=== PATIENT | female | born 1940 | race Caucasian/White ===

== ENCOUNTER 2017-12-18 14:58 | Inpatient (IN) | payer OTHER, MEDICARE ==
[~2017-12-18] VITALS: Ht 154.9 cm; Wt 70.3 kg
[2017-12-18 15:13] VITALS: BP 141/58; PULSE 93; RESP 16; TEMP 103; O2SAT 91
[2017-12-18 15:16] LABS: AUTOMATED NEUTROPHIL # 6.9 TH/MM3 (1.8-7.7); BASOPHIL % 0.2 % (0.0-2.0); HEMATOCRIT 37.5 % (35.0-46.0); HEMOGLOBIN 12.7 GM/DL (11.6-15.3); LYMPHOCYTE # 0.5 TH/MM3 (1.0-4.8); MEAN CELL VOLUME 90.6 FL (80.0-100.0); MEAN CORPUSCULAR HEMOGLOBIN 30.8 PG (27.0-34.0); MEAN PLATELET VOLUME 8.3 FL (7.0-11.0); MONO % 5.3 % (0.0-8.0); MONOCYTE # 0.4 TH/MM3 (0-0.9); NEUT % 87.5 % (16.0-70.0); PLATELET COUNT 116 TH/MM3 (150-450); RED BLOOD COUNT 4.14 MIL/MM3 (4.00-5.30); WHITE BLOOD COUNT 7.8 TH/MM3 (4.0-11.0)
--- NOTE | 2017-12-18 15:23 | PD ---
HPI Chief Complaint: Fever Time Seen by Provider: 15:07 Travel History International Travel<30 days: No Contact w/Intl Traveler<30days: No Traveled to known affect area: No History of Present Illness HPI The patient is a 77-year-old female who presents to the emergency department via EMS for generalized weakness. The patient states her symptoms started on Sunday with fever. The patient has had a fever at home as high as 105 for her r report. The patient does complain of arthralgias, generalized weakness, one episode of diarrhea this morning. The patient describes the diarrhea as loose, watery, brown, without any visible blood. She denies any history of C. difficile. She denies any sick contacts at home. She denies any headache, sore throat, cough, nausea, vomiting, or abdominal pain. She denies any associated dysuria. She does complain of generalized weakness. Symptoms are moderate. [facility] Social History Tobacco Use: No Allergies-Medications (Allergen,Severity, Reaction): Coded Allergies: Sulfa (Sulfonamide Antibiotics) (Verified Allergy, Severe, Hives, 12/18/17) Review of Systems Except as stated in HPI: all other systems reviewed are Neg General / Constitutional: Positive: Fever, Chills HENT: No: Headaches, Sore Throat, Congestion Cardiovascular: No: Chest Pain or Discomfort Respiratory: No: Cough, Shortness of Breath Gastrointestinal: Positive: Diarrhea, No: Nausea, Vomiting, Abdominal Pain Genitourinary: No: Dysuria Musculoskeletal: Positive: Arthralgias, No: Myalgias Skin: No Rash Physical Exam Narrative GENERAL: Awake, alert, pleasant 77-year-old female who appears her stated age and is in no acute respiratory distress. SKIN: Focused skin assessment warm/dry. HEAD: Atraumatic. Normocephalic. EYES: Pupils equal and round. No scleral icterus. No injection or drainage. ENT: No nasal bleeding or discharge. Slightly dry mucous membranes. NECK: Trachea midline. No JVD. CARDIOVASCULAR: Regular rate and rhythm. No murmur appreciated. Heart rate in the 90s. RESPIRATORY: No accessory muscle use. Clear to auscultation. Breath sounds equal bilaterally. GASTROINTESTINAL: Abdomen soft, non-tender, nondistended. No rebound tenderness , guarding, rigidity. Negative Almendarez's. Negative McBurney's. MUSCULOSKELETAL: No obvious deformities. No clubbing. No cyanosis. No edema. NEUROLOGICAL: Awake and alert. No obvious cranial nerve deficits. Motor grossly within normal limits. Normal speech. PSYCHIATRIC: Appropriate mood and affect; insight and judgment normal. Data Data Last Documented VS Vital Signs Date Time Temp Pulse Resp B/P (MAP) Pulse Ox O2 Delivery O2 Flow Rate FiO2 12/18/17 16:44 101.3 85 18 112/51 (71) 94 Nasal Cannula 2.00 Orders Orders Sepsis Workup Initiated (12/18/17 ) Complete Blood Count With Diff (12/18/17 15:04) Comprehensive Metabolic Panel (12/18/17 15:04) Urinalysis - C+S If Indicated (12/18/17 15:04) Lactic Acid Sepsis Protocol (12/18/17 15:04) Blood Culture (12/18/17 15:04) Iv Access Insert/Monitor (12/18/17 15:04) Oxygen Administration (12/18/17 15:04) Oximetry (12/18/17 15:04) Blood Glucose (12/18/17 15:04) Electrocardiogram (12/18/17 15:09) Chest, Single Ap (12/18/17 ) Influenzae A/B Antigen (12/18/17 15:18) Acetaminophen (Tylenol) (12/18/17 15:30) Sodium Chlor 0.9% 1000 Ml Inj (Ns 1000 M (12/18/17 15:30) Urine Culture (12/18/17 16:40) Sodium Chlor 0.9% 1000 Ml Inj (Ns 1000 M (12/18/17 17:15) Ceftriaxone Inj (Rocephin Inj) (12/18/17 17:15) Labs Laboratory Tests Test 12/18/17 15:08 12/18/17 16:40 White Blood Count 7.8 TH/MM3 Red Blood Count 4.14 MIL/MM3 Hemoglobin 12.7 GM/DL Hematocrit 37.5 % Mean Corpuscular Volume 90.6 FL Mean Corpuscular Hemoglobin 30.8 PG Mean Corpuscular Hemoglobin Concent 34.0 % Red Cell Distribution Width 13.0 % Platelet Count 116 TH/MM3 Mean Platelet Volume 8.3 FL Neutrophils (%) (Auto) 87.5 % Lymphocytes (%) (Auto) 7.0 % Monocytes (%) (Auto) 5.3 % Eosinophils (%) (Auto) 0.0 % Basophils (%) (Auto) 0.2 % Neutrophils # (Auto) 6.9 TH/MM3 Lymphocytes # (Auto) 0.5 TH/MM3 Monocytes # (Auto) 0.4 TH/MM3 Eosinophils # (Auto) 0.0 TH/MM3 Basophils # (Auto) 0.0 TH/MM3 CBC Comment DIFF FINAL Differential Comment Blood Urea Nitrogen 19 MG/DL Creatinine 0.99 MG/DL Random Glucose 121 MG/DL Total Protein 7.1 GM/DL Albumin 2.9 GM/DL Calcium Level 8.0 MG/DL Alkaline Phosphatase 56 U/L Aspartate Amino Transf (AST/SGOT) 64 U/L Alanine Aminotransferase (ALT/SGPT) 40 U/L Total Bilirubin 0.5 MG/DL Sodium Level 134 MEQ/L Potassium Level 4.2 MEQ/L Chloride Level 102 MEQ/L Carbon Dioxide Level 24.5 MEQ/L Anion Gap 8 MEQ/L Estimat Glomerular Filtration Rate 54 ML/MIN Lactic Acid Level 1.3 mmol/L Urine Color ORANGE Urine Turbidity CLOUDY Urine pH 6.0 Urine Specific [place] 1.020 Urine Protein 100 mg/dL Urine Glucose (UA) NEG mg/dL Urine Ketones 80 OR GREATER mg/dL Urine Occult Blood MOD Urine Nitrite NEG Urine Bilirubin NEG Urine Urobilinogen 1.0 MG/DL Urine Leukocyte Esterase TRACE Urine RBC 4-9 /hpf Urine WBC 15-19 /hpf Urine Squamous Epithelial Cells 6-8 /hpf Urine Amorphous Sediment FEW Urine Bacteria FEW /hpf Microscopic Urinalysis Comment CULTURE INDICATED MDM Medical Decision Making Medical Screen Exam Complete: Yes Emergency Medical Condition: Yes Medical Record Reviewed: Yes Interpretation(s) EKG reveals normal sinus rhythm with a rate of 90. Inverted T waves noted in lead III. Laboratory Tests Test 12/18/17 15:08 12/18/17 16:40 White Blood Count 7.8 TH/MM3 Red Blood Count 4.14 MIL/MM3 Hemoglobin 12.7 GM/DL Hematocrit 37.5 % Mean Corpuscular Volume 90.6 FL Mean Corpuscular Hemoglobin 30.8 PG Mean Corpuscular Hemoglobin Concent 34.0 % Red Cell Distribution Width 13.0 % Platelet Count 116 TH/MM3 Mean Platelet Volume 8.3 FL Neutrophils (%) (Auto) 87.5 % Lymphocytes (%) (Auto) 7.0 % Monocytes (%) (Auto) 5.3 % Eosinophils (%) (Auto) 0.0 % Basophils (%) (Auto) 0.2 % Neutrophils # (Auto) 6.9 TH/MM3 Lymphocytes # (Auto) 0.5 TH/MM3 Monocytes # (Auto) 0.4 TH/MM3 Eosinophils # (Auto) 0.0 TH/MM3 Basophils # (Auto) 0.0 TH/MM3 CBC Comment DIFF FINAL Differential Comment Blood Urea Nitrogen 19 MG/DL Creatinine 0.99 MG/DL Random Glucose 121 MG/DL Total Protein 7.1 GM/DL Albumin 2.9 GM/DL Calcium Level 8.0 MG/DL Alkaline Phosphatase 56 U/L Aspartate Amino Transf (AST/SGOT) 64 U/L Alanine Aminotransferase (ALT/SGPT) 40 U/L Total Bilirubin 0.5 MG/DL Sodium Level 134 MEQ/L Potassium Level 4.2 MEQ/L Chloride Level 102 MEQ/L Carbon Dioxide Level 24.5 MEQ/L Anion Gap 8 MEQ/L Estimat Glomerular Filtration Rate 54 ML/MIN Lactic Acid Level 1.3 mmol/L Urine Color ORANGE Urine Turbidity CLOUDY Urine pH 6.0 Urine Specific [place] 1.020 Urine Protein 100 mg/dL Urine Glucose (UA) NEG mg/dL Urine Ketones 80 OR GREATER mg/dL Urine Occult Blood MOD Urine Nitrite NEG Urine Bilirubin NEG Urine Urobilinogen 1.0 MG/DL Urine Leukocyte Esterase TRACE Urine RBC 4-9 /hpf Urine WBC 15-19 /hpf Urine Squamous Epithelial Cells 6-8 /hpf Urine Amorphous Sediment FEW Urine Bacteria FEW /hpf Microscopic Urinalysis Comment CULTURE INDICATED Last Impressions Chest X-Ray 12/18/17 0000 Signed Impressions: Service Date/Time: Monday, December 18, 2017 15:32 - CONCLUSION: No acute cardiopulmonary disease. Jhonny Thompson Jr., MD Differential Diagnosis Differential diagnosis includes sepsis, bacteremia, septicemia, UTI, pyelonephritis, pneumonia, influenza, bronchitis, viral syndrome, C. difficile, enteritis, colitis. Narrative Course IV was established, labs are drawn and sent, and the patient was placed on cardiac telemetry monitoring and continuous pulse oximetry monitoring. EKG was ordered and interpreted. Blood cultures, lactic acid, UA were sent to lab. The patient received Tylenol 1 g p.o. and 1 L of normal saline intravenously. White count is normal. Lactic acid is normal. UA is positive for UTI. The patient does meet sepsis criteria with temperature and elevated heart rate. The patient was reevaluated after 1 L of fluid, she still feels weak, was unable to ambulate to the bathroom. She has her 's toxicologist, she states she will have her son take care of her who is at home. She feels too weak to perform activities of daily living, therefore, will be admitted. The patient has [employer], therefore, discussed the patient with [facility] to agree with admission. Sepsis Criteria SIRS Criteria (2 or more): Temp > 100.9 or < 96.8, Heart rate over 90 Sepsis Criteria (SIRS+source): Infect source susp/known Physician Communication Physician Communication I discussed the patient with Dr. Espinoza who agrees with admission. Diagnosis Primary Impression: Sepsis Qualified Codes: A41.9 - Sepsis, unspecified organism Additional Impression: UTI (urinary tract infection) Qualified Codes: N30.00 - Acute cystitis without hematuria Admitting Information Admitting Physician Requests: Admit Condition: Stable Waldemar Valdez MD Dec 18, 2017 15:23
[2017-12-18 15:29] LABS: CHLORIDE 102 MEQ/L (98-107); SODIUM (NA) 134 MEQ/L (136-145)
[2017-12-18] MEDS ORDERED: ACETAMINOPHEN 500 MG CPLT PO ONE (15:30)
[2017-12-18] MEDS ORDERED: SODIUM CHLOR 0.9% 1000 ML INJ 1,000 ML IV ONE ×2 (15:30→17:15)
[2017-12-18 15:33] LABS: ALBUMIN 2.9 GM/DL (3.4-5.0); BICARBONATE 24.5 MEQ/L (21.0-32.0); BLOOD UREA NITROGEN 19 MG/DL (7-18); GLUCOSE,RANDOM 121 MG/DL (74-106)
[2017-12-18 15:36] LABS: ALT (GPT) 40 U/L (10-53); AST (GOT) 64 U/L (15-37); CREATININE 0.99 MG/DL (0.50-1.00); GLOMERULAR FILTRATION RATE 54 ML/MIN (>89)
[2017-12-18 15:38] LABS: TOTAL BILIRUBIN ADULT 0.5 MG/DL (0.2-1.0); TOTAL PROTEIN 7.1 GM/DL (6.4-8.2)
[2017-12-18 15:39] LABS: ALKALINE PHOSPHATASE 56 U/L (45-117)
--- NOTE | 2017-12-18 15:53 | RADRPT ---
EXAM DATE/TIME: 12/18/2017 15:32 [facility] COMPARISON: No previous studies available for comparison. INDICATIONS : Fever and weakness. MEDICAL HISTORY : Hypercholesterolemia. SURGICAL HISTORY : None. ENCOUNTER: Initial ACUITY: 3 days PAIN SCORE: 0/10 LOCATION: Bilateral chest FINDINGS: A single view of the chest demonstrates the lungs to be symmetrically aerated without evidence of mas s, infiltrate or effusion. Elevation of the right hemidiaphragm. The cardiomediastinal contours are u nremarkable. Osseous structures are intact. CONCLUSION: No acute cardiopulmonary disease. Jhonny Thompson Jr., MD on December 18, 2017 at 15:51 Board Certified Radiologist. This report was verified electronically.
[2017-12-18 15:55] VITALS: BP 140/48; PULSE 92; RESP 18; TEMP 103.1; O2SAT 94
[2017-12-18 16:44] VITALS: BP 112/51; PULSE 85; RESP 18; TEMP 101.3; O2SAT 94
[2017-12-18 16:54] LABS: BILIRUBIN, URINE NEG (NEG); BLOOD, URINE MOD (NEG); GLUCOSE,URINE NEG (NEG); KETONE, URINE 80 OR GREATER mg/dL (NEG); NITRITE,URINE NEG (NEG); URINE LEUKOCYTE ESTERASE TRACE (NEG)
[2017-12-18 16:59] LABS: URINE COLOR ORANGE (YELLW/STRAW)
[2017-12-18 17:03] LABS: AMORPHOUS SEDIMENT, URINE FEW; BACTERIA, URINE FEW /hpf; WBC, URINE 15-19 /hpf (0-5)
[2017-12-18] MEDS ORDERED: cefTRIAXone INJ 1,000 MG in SODIUM CHLORIDE 0.9% INJ 100 ML IV ONE (17:15)
[2017-12-18 17:52] VITALS: BP 106/43; PULSE 79; RESP 16; TEMP 98.9; O2SAT 96
[2017-12-18 18:00] VITALS: BP 111/56; PULSE 84; RESP 20; TEMP 99; O2SAT 95
[2017-12-18] MEDS ORDERED: BISACODYL 10 MG SUPP RECTAL PRN (18:00)
[2017-12-18] MEDS ORDERED: SODIUM CHLORIDE 0.9% FLUSH 10 ML FLUSH IV FLUSH PRN (18:00)
[2017-12-18] MEDS ORDERED: LACTULOSE SYRUP 20 GM/30 ML CUP PO PRN (18:00)
[2017-12-18] MEDS ORDERED: NALOXONE HCL 0.4 MG/ML AMP IV PUSH PRN (18:00)
[2017-12-18] MEDS ORDERED: SENNOSIDES 8.6 MG TAB PO PRN (18:00)
[2017-12-18] MEDS ORDERED: MAGNESIUM HYDROXIDE SUSP 30 ML CUP PO PRN (18:00)
[2017-12-18] MEDS ORDERED: PRIL20TA2 (18:05)
[2017-12-18] MEDS ORDERED: SIMV20TA PO (18:05)
[2017-12-18] MEDS ORDERED: ASPI81CH7 CHEW (18:05)
[2017-12-18] MEDS ORDERED: ATEN50TA PO (18:05)
[2017-12-18] MEDS ORDERED: AMLO5CAP3 PO (18:05)
[2017-12-18] MEDS ORDERED: LEVO50TA4 PO (18:05)
[2017-12-18 20:00] VITALS: BP 115/58; PULSE 77; RESP 20; TEMP 99; O2SAT 95
[2017-12-18] MEDS: DOCUSATE SODIUM 50 MG/SENNA 8.6 MG TAB PO SCH ×2 (21:00→22:31)
[2017-12-18] MEDS: SODIUM CHLOR 0.9% 1000 ML INJ 1,000 ML IV SCH (22:30)
[2017-12-18] MEDS: SODIUM CHLORIDE 0.9% FLUSH 10 ML FLUSH IV FLUSH SCH (22:31)
[2017-12-18] MEDS: ACETAMINOPHEN 325 MG TAB PO PRN (22:36)
[2017-12-19] VITALS: BP 118/57; PULSE 88; RESP 20; TEMP 98.6; O2SAT 96
[2017-12-19] MEDS: SODIUM CHLOR 0.9% 1000 ML INJ 1,000 ML IV SCH ×3 (05:11→13:30)
[2017-12-19] MEDS: ACETAMINOPHEN 325 MG TAB PO PRN (05:18)
[2017-12-19 06:57] LABS: AUTOMATED NEUTROPHIL # 5.9 TH/MM3 (1.8-7.7); BASOPHIL % 0.2 % (0.0-2.0); EOSINOPHIL # 0.1 TH/MM3 (0-0.4); EOSINOPHIL % 0.9 % (0.0-4.0); HEMATOCRIT 34.8 % (35.0-46.0); HEMOGLOBIN 12.1 GM/DL (11.6-15.3); LYMPH % 11.6 % (9.0-44.0); LYMPHOCYTE # 0.8 TH/MM3 (1.0-4.8); MEAN CELL VOLUME 91.5 FL (80.0-100.0); MEAN CORPUSCULAR HEMOGLOBIN 31.7 PG (27.0-34.0); MEAN CORPUSCULAR HGB CONC 34.7 % (32.0-36.0); MEAN PLATELET VOLUME 9.3 FL (7.0-11.0); MONO % 4.7 % (0.0-8.0); MONOCYTE # 0.3 TH/MM3 (0-0.9); NEUT % 82.6 % (16.0-70.0); PLATELET COUNT 100 TH/MM3 (150-450); RED CELL DISTRIBUTION WIDTH 13.4 % (11.6-17.2); WHITE BLOOD COUNT 7.1 TH/MM3 (4.0-11.0)
[2017-12-19 07:08] LABS: CALCIUM 7.9 MG/DL (8.5-10.1)
[2017-12-19 07:09] LABS: BICARBONATE 23.3 MEQ/L (21.0-32.0)
[2017-12-19 07:12] LABS: CREATININE 0.67 MG/DL (0.50-1.00)
[2017-12-19 08:00] VITALS: BP 121/60; PULSE 72; RESP 24; TEMP 98.8; O2SAT 91
[2017-12-19] MEDS: LISINOPRIL 20 MG TAB PO SCH (09:00)
[2017-12-19] MEDS: SODIUM CHLORIDE 0.9% FLUSH 10 ML FLUSH IV FLUSH SCH ×2 (09:00→20:59)
[2017-12-19] MEDS: DOCUSATE SODIUM 50 MG/SENNA 8.6 MG TAB PO SCH (09:00)
[2017-12-19] MEDS ORDERED: Vancomycin Consult Pharmacy 1 EA OTHER SCH (10:15)
[2017-12-19] MEDS ORDERED: VANCOMYCIN INJ 1,000 MG in SODIUM CHLOR 0.9% 250 ML INJ 250 ML IV ONE (10:15)
[2017-12-19 12:00] VITALS: BP 132/59; PULSE 78; RESP 20; TEMP 97.7; O2SAT 95
[2017-12-19] MEDS ORDERED: NON-FORMULARY DRUG (Amlodipine-Benazepril 1 CAP) PO SCH (13:00)
--- NOTE | 2017-12-19 13:06 | HHI.HP ---
[facility] Service [facility] Primary Care Physician Non-Staff Admission Diagnosis Sepsis, UTI Diagnoses: Chief Complaint: Fever and chills for 4 days Travel History International Travel<30 Days: No Contact w/Intl Traveler <30 Da: No Traveled to Known Affected Are: No History of Present Illness Patient is a 77-year-old female with a history of hypothyroidism, hypertension and tachycardia intermittently who came to the emergency room after 4 days of dealing with fevers and chills at home. She had been taking Tylenol without any improvement. She notes no diarrhea, dysuria or chest discomfort. She has not had a cough. When she came to the hospital she was febrile at 103.1 and her heart rate was over 90. Patient takes a beta arcadio normally for intermittent tachycardia. She also was found have urinary tract infection. Blood cultures have been done and are positive. Patient is septic at this time with evidence of urinary tract infection and bacteremia. She's been admitted to the hospital for further evaluation. Her temperature has improved here in the hospital with IV antibiotics. There is no travel recently, no recent procedures or dental troubles, and no acutely ill family members although her has chronic dementia. Review of Systems Constitutional: COMPLAINS OF: Fever, Chills, DENIES: Diaphoretic episodes, Fatigue, Weight gain, Weight loss, Dizziness, Change in appetite, Night Sweats Endocrine: DENIES: Abnorml menstrual pattern, Heat/cold intolerance, Polydipsia , Polyuria, Polyphagia Eyes: DENIES: Blurred vision, Diplopia, Eye inflammation, Eye pain, Vision loss , Photosensitivity, Double Vision Ears, nose, mouth, throat: DENIES: Tinnitus, Hearing loss, Vertigo, Nasal discharge, Oral lesions, Throat pain, Hoarseness, Ear Pain, Running Nose, Epistaxis, Sinus Pain, Toothache, Odynophagia Respiratory: DENIES: Apneas, Cough, Snoring, Wheezing, Hemoptysis, Sputum production, Shortness of breath Cardiovascular: DENIES: Chest pain, Palpitations, Syncope, Dyspnea on Exertion , PND, Lower Extremity Edema, Orthopnea, Claudication Gastrointestinal: DENIES: Abdominal pain, Black stools, Bloody stools, Constipation, Diarrhea, Nausea, Vomiting, Difficulty Swallowing, Anorexia Genitourinary: DENIES: Abnormal vaginal bleeding, Dysmenorrhea, Dyspareunia, Sexual dysfunction, Urinary frequency, Urinary incontinence, Urgency, Hematuria , Dysuria, Nocturia, Vaginal discharge Musculoskeletal: DENIES: Joint pain, Muscle aches, Stiffness, Joint Swelling, Back pain, Neck pain Integumentary: DENIES: Abnormal pigmentation, Pruritus, Rash, Nail changes, Breast masses, Breast skin changes, Nipple discharge Hematologic/lymphatic: DENIES: Bruising, Lymphadenopathy Immunologic/allergic: DENIES: Eczema, Urticaria Neurologic: DENIES: Abnormal gait, Headache, Localized weakness, Paresthesias, Seizures, Speech Problems, Tremor, Poor Balance Psychiatric: DENIES: Anxiety, Confusion, Mood changes, Depression, Hallucinations, Agitation, Suicidal Ideation, Homicidal Ideation, Delusions Except as stated in HPI: all other systems reviewed are Neg Past Family Social History Past Medical History Hypertension Hypothyroidism GERD Renal stones Intermittent tachycardia (on a beta arcadio) Past Surgical History Hysterectomy Reported Medications Reviewed in the EMR Allergies: Coded Allergies: Sulfa (Sulfonamide Antibiotics) (Verified Allergy, Severe, Hives, 12/18/17) Active Ordered Medications Reviewed in the EMR Family History Hypertension Social History No tobacco or alcohol dependency issues, lives with her who has dementia Physical Exam Vital Signs Vital Signs Date Time Temp Pulse Resp B/P (MAP) Pulse Ox O2 Delivery O2 Flow Rate FiO2 12/19/17 12:00 97.7 78 20 132/59 (83) 95 12/19/17 08:00 98.8 72 24 121/60 (80) 91 12/19/17 00:00 98.6 88 20 118/57 (77) 96 12/18/17 20:00 99.0 77 20 115/58 (77) 95 12/18/17 18:15 12/18/17 18:00 99.0 84 20 111/56 (74) 95 12/18/17 17:52 98.9 79 16 106/43 (64) 96 Nasal Cannula 2.00 12/18/17 16:44 101.3 85 18 112/51 (71) 94 Nasal Cannula 2.00 12/18/17 15:55 103.1 92 18 140/48 (78) 94 Room Air 12/18/17 15:22 Nasal Cannula 12/18/17 15:13 103.0 93 16 141/58 (85) 91 Room Air 12/18/17 15:13 91 Room Air 12/18/17 15:13 94 Nasal Cannula 2.00 Physical Exam GENERAL: This is a well-nourished, well-developed patient, in no apparent distress. SKIN: No rashes, ecchymoses or lesions. Cool and dry. HEAD: Atraumatic. Normocephalic. No temporal or scalp tenderness. EYES: Pupils equal round and reactive. Extraocular motions intact. No scleral icterus. No injection or drainage. ENT: Nose without bleeding, purulent drainage or septal hematoma. Throat without erythema, tonsillar hypertrophy or exudate. Uvula midline. Airway patent. NECK: Trachea midline. No JVD or lymphadenopathy. Supple, nontender, no meningeal signs. CARDIOVASCULAR: Regular rate and rhythm without murmurs, gallops, or rubs. RESPIRATORY: Clear to auscultation. Breath sounds equal bilaterally. No wheezes , rales, or rhonchi. GASTROINTESTINAL: Abdomen soft, non-tender, nondistended. No hepato-splenomegaly , or palpable masses. No guarding. MUSCULOSKELETAL: Extremities without clubbing, cyanosis, or edema. No joint tenderness, effusion, or edema noted. No calf tenderness. Negative Homans sign bilaterally. NEUROLOGICAL: Awake and alert. Cranial nerves II through XII intact. Motor and sensory grossly within normal limits. Five out of 5 muscle strength in all muscle groups. Normal speech. Laboratory Laboratory Tests Test 12/18/17 15:08 12/18/17 16:40 12/19/17 06:09 White Blood Count 7.8 7.1 Red Blood Count 4.14 3.80 Hemoglobin 12.7 12.1 Hematocrit 37.5 34.8 Mean Corpuscular Volume 90.6 91.5 Mean Corpuscular Hemoglobin 30.8 31.7 Mean Corpuscular Hemoglobin Concent 34.0 34.7 Red Cell Distribution Width 13.0 13.4 Platelet Count 116 100 Mean Platelet Volume 8.3 9.3 Neutrophils (%) (Auto) 87.5 82.6 Lymphocytes (%) (Auto) 7.0 11.6 Monocytes (%) (Auto) 5.3 4.7 Eosinophils (%) (Auto) 0.0 0.9 Basophils (%) (Auto) 0.2 0.2 Neutrophils # (Auto) 6.9 5.9 Lymphocytes # (Auto) 0.5 0.8 Monocytes # (Auto) 0.4 0.3 Eosinophils # (Auto) 0.0 0.1 Basophils # (Auto) 0.0 0.0 CBC Comment DIFF FINAL DIFF FINAL Differential Comment Blood Urea Nitrogen 19 12 Creatinine 0.99 0.67 Random Glucose 121 140 Total Protein 7.1 Albumin 2.9 Calcium Level 8.0 7.9 Alkaline Phosphatase 56 Aspartate Amino Transf (AST/SGOT) 64 Alanine Aminotransferase (ALT/SGPT) 40 Total Bilirubin 0.5 Sodium Level 134 139 Potassium Level 4.2 3.5 Chloride Level 102 109 Carbon Dioxide Level 24.5 23.3 Anion Gap 8 7 Estimat Glomerular Filtration Rate 54 85 Lactic Acid Level 1.3 Urine Color ORANGE Urine Turbidity CLOUDY Urine pH 6.0 Urine Specific [place] 1.020 Urine Protein 100 Urine Glucose (UA) NEG Urine Ketones 80 OR GREATER Urine Occult Blood MOD Urine Nitrite NEG Urine Bilirubin NEG Urine Urobilinogen 1.0 Urine Leukocyte Esterase TRACE Urine RBC 4-9 Urine WBC 15-19 Urine Squamous Epithelial Cells 6-8 Urine Amorphous Sediment FEW Urine Bacteria FEW Microscopic Urinalysis Comment CULTURE INDICATED Date/Time Source Procedure Growth Status 12/18/17 15:25 Blood Peripheral Aerobic Blood Culture - Preliminary Gram Positive Cocci Resulted 12/18/17 15:25 Anaerobic Blood Culture - Preliminary Gram Positive Cocci Resulted 12/18/17 15:25 Nasal Aspirate Influenza Types A,B Antigen (NENITA) - Final NEGATIVE FOR FLU A AND B ANTIGEN.... Complete 12/18/17 16:40 Urine Clean Catch Urine Culture Pending Received Result Diagram: 12/19/17 0609 12/19/17 0609 Imaging Last Impressions Chest X-Ray 12/18/17 0000 Signed Impressions: Service Date/Time: Monday, December 18, 2017 15:32 - CONCLUSION: No acute cardiopulmonary disease. Jhonny Thompson Jr., MD Septic Shock Reassessment Septic shock perfusion: reassessment completed Caprini VTE Risk Assessment Caprini VTE Risk Assessment: Mod/High Risk (score >= 2) Caprini Risk Assessment Model Point Value = 1 Point Value = 2 Point Value = 3 Point Value = 5 Age 41-60 Minor surgery BMI > 25 kg/m2 Swollen legs Varicose veins or History of unexplained or recurrent spontaneous Oral contraceptives or hormone replacement Sepsis (< 1 month) Serious lung disease, including pneumonia (< 1 month) Abnormal pulmonary function Acute myocardial infarction Congestive heart failure (< 1 month) History of inflammatory bowel disease Medical patient at bed rest Age 61-74 Arthroscopic surgery Major open surgery (> 45 min) Laparoscopic surgery (> 45 min) Malignancy Confined to bed (> 72 hours) Immobilizing plaster cast Central venous access Age >= 75 History of VTE Family history of VTE Factor V Leiden Prothrombin [id number] Lupus anticoagulant Anticardiolipin antibodies Elevated serum homocysteine Heparin-induced thrombocytopenia Other congenital or acquired thrombophilia Stroke (< 1 month) Elective arthroplasty Hip, pelvis, or leg fracture Acute spinal cord injury (< 1 month) Prophylaxis Regimen Total Risk Factor Score Risk Level Prophylaxis Regimen 0-1 Low Early ambulation 2 Moderate Order ONE of the following: *Sequential Compression Device (SCD) *Heparin 5000 units SQ BID 3-4 Higher Order ONE of the following medications: *Heparin 5000 units SQ TID *Enoxaparin/Lovenox 40 mg SQ daily (WT < 150 kg, CrCl > 30 mL/min) *Enoxaparin/Lovenox 30 mg SQ daily (WT < 150 kg, CrCl > 10-29 mL/min) *Enoxaparin/Lovenox 30 mg SQ BID (WT < 150 kg, CrCl > 30 mL/min) AND/OR *Sequential Compression Device (SCD) 5 or more Highest Order ONE of the following medications: *Heparin 5000 units SQ TID (Preferred with Epidurals) *Enoxaparin/Lovenox 40 mg SQ daily (WT < 150 kg, CrCl > 30 mL/min) *Enoxaparin/Lovenox 30 mg SQ daily (WT < 150 kg, CrCl > 10-29 mL/min) *Enoxaparin/Lovenox 30 mg SQ BID (WT < 150 kg, CrCl > 30 mL/min) AND *Sequential Compression Device (SCD) Assessment and Plan Problem List: (1) Bacteremia ICD Code: R78.81 - Bacteremia Plan: Etiology unclear at this time. Patient denies IV drug use, she has no recent procedures. She has never had any bacterial infections before May be due to urinary tract infection however urine cultures are still pending. Patient doing well with current antibiotics IV vancomycin and Rocephin Fever is improved (2) UTI (urinary tract infection) ICD Code: N39.0 - Urinary tract infection, site not specified Status: Acute (3) Sepsis ICD Code: A41.9 - Sepsis, unspecified organism Status: Acute Plan: Heart rate in temperature improved. Patient with bacteremia and UTI We'll continue empiric Rocephin and vancomycin for now and follow up with infectious disease team (4) Hyperglycemia ICD Code: R73.9 - Hyperglycemia, unspecified Plan: Patient has no history of diabetes and this may be hyperglycemia related to sepsis, we'll follow trend and treat as needed (5) LFT elevation ICD Code: R79.89 - Other specified abnormal findings of blood chemistry Plan: this is slightly elevated and patient may have some initial hypovolemia on presentation We'll follow trend as patient has become more hydrated after IV fluids Assessment and Plan Plan of care to be determined by Hospital course Code Status DNR Physician Certification 2 Midnight Certification Type: Admission for Inpatient Services Order for Inpatient Services The services are ordered in accordance with Medicare regulations or non- Medicare payer requirements, as applicable. In the case of services not specified as inpatient-only, they are appropriately provided as inpatient services in accordance with the 2-midnight benchmark. Estimated LOS (days): 4 4 days is the estimated time the patient will need to remain in the hospital, assuming treatment plan goals are met and no additional complications. Post-Hospital Plan: Home Problem Qualifiers (1) UTI (urinary tract infection): Qualified Codes: N30.00 - Acute cystitis without hematuria (2) Sepsis: Qualified Codes: A41.9 - Sepsis, unspecified organism Mary Espinoza MD Dec 19, 2017 13:06
--- NOTE | 2017-12-19 14:23 | EKG ---
Date Performed: 12/18/2017 Time Performed: 15:09:28 PTAGE: 77 years EKG: Sinus rhythm NORMAL ECG NO PREVIOUS TRACING DOCTOR: Jet Nettles Interpretating Date/Time 12/19/2017 14:22:12
[2017-12-19] MEDS: ASPIRIN 81 MG CHEW TAB CHEW SCH (14:28)
[2017-12-19] MEDS: PANTOPRAZOLE SOD 40 MG DELAYED RELEASE TAB PO SCH (14:28)
[2017-12-19] MEDS: LEVOTHYROXINE SODIUM 50 MCG TAB PO SCH (14:28)
[2017-12-19] MEDS: amLODIPine BESYLATE 5 MG TAB PO SCH (14:29)
[2017-12-19] MEDS: ATENOLOL 50 MG TAB PO SCH (14:29)
[2017-12-19] MEDS: HEPARIN SODIUM - SQ 10,000 UNITS/ML VIAL SQ SCH ×2 (14:30→20:59)
[2017-12-19 14:39] LABS: ALBUMIN 2.5 GM/DL (3.4-5.0)
[2017-12-19 14:42] LABS: DIRECT BILIRUBIN ADULT 0.2 MG/DL (0.0-0.2)
[2017-12-19 14:43] LABS: INDIRECT BILIRUBIN 0.3 MG/DL (0.0-0.8); TOTAL BILIRUBIN ADULT 0.5 MG/DL (0.2-1.0); TOTAL PROTEIN 6.2 GM/DL (6.4-8.2)
[2017-12-19] MEDS ORDERED: ALUMINUM/MAGNESIUM/SIMETH 30 ML CUP PO PRN (15:45)
[2017-12-19 16:00] VITALS: BP 142/68; PULSE 72; RESP 20; TEMP 101.7; O2SAT 92
[2017-12-19] MEDS ORDERED: cefTRIAXone INJ 1,000 MG in SODIUM CHLORIDE 0.9% INJ 100 ML IV SCH (17:00)
[2017-12-19 20:00] VITALS: BP 147/65; PULSE 72; RESP 20; TEMP 100.2; O2SAT 96
[2017-12-19 20:56] VITALS: TEMP 99.7
[2017-12-19] MEDS: PRAVASTATIN SOD 40 MG TAB PO SCH (20:58)
[2017-12-19] MEDS ORDERED: ONDANSETRON HCL 4 MG/2 ML VIAL IV PUSH PRN (21:15)
[2017-12-20] VITALS (8 sets, daily range): BP systolic 134–144; BP diastolic 63–64; PULSE 61–82; RESP 15–20; TEMP 96.2–100; O2SAT 91–95
[2017-12-20] MEDS: ACETAMINOPHEN 325 MG TAB PO PRN (00:23)
[2017-12-20 05:37] LABS: AUTOMATED NEUTROPHIL # 5.4 TH/MM3 (1.8-7.7); BASOPHIL % 0.4 % (0.0-2.0); EOSINOPHIL % 0.2 % (0.0-4.0); HEMATOCRIT 34.3 % (35.0-46.0); LYMPH % 18.7 % (9.0-44.0); LYMPHOCYTE # 1.4 TH/MM3 (1.0-4.8); MEAN CORPUSCULAR HEMOGLOBIN 29.8 PG (27.0-34.0); MEAN CORPUSCULAR HGB CONC 32.1 % (32.0-36.0); MEAN PLATELET VOLUME 9.6 FL (7.0-11.0); MONO % 8.1 % (0.0-8.0); MONOCYTE # 0.6 TH/MM3 (0-0.9); NEUT % 72.6 % (16.0-70.0); PLATELET COUNT 98 TH/MM3 (150-450); RED BLOOD COUNT 3.69 MIL/MM3 (4.00-5.30); RED CELL DISTRIBUTION WIDTH 13.2 % (11.6-17.2); WHITE BLOOD COUNT 7.4 TH/MM3 (4.0-11.0)
[2017-12-20 05:45] LABS: CHLORIDE 108 MEQ/L (98-107); SODIUM (NA) 139 MEQ/L (136-145)
[2017-12-20 05:49] LABS: ALBUMIN 2.1 GM/DL (3.4-5.0); BLOOD UREA NITROGEN 9 MG/DL (7-18); CALCIUM 7.7 MG/DL (8.5-10.1); GLUCOSE,RANDOM 144 MG/DL (74-106)
[2017-12-20 05:52] LABS: ALT (GPT) 45 U/L (10-53); AST (GOT) 55 U/L (15-37); CREATININE 0.59 MG/DL (0.50-1.00); GLOMERULAR FILTRATION RATE 99 ML/MIN (>89)
[2017-12-20 05:54] LABS: TOTAL BILIRUBIN ADULT 0.3 MG/DL (0.2-1.0); TOTAL PROTEIN 5.6 GM/DL (6.4-8.2)
[2017-12-20 05:55] LABS: ALKALINE PHOSPHATASE 57 U/L (45-117)
[2017-12-20] MEDS: HEPARIN SODIUM - SQ 10,000 UNITS/ML VIAL SQ SCH ×3 (06:07→20:55)
[2017-12-20] MEDS: LEVOTHYROXINE SODIUM 50 MCG TAB PO SCH (06:07)
[2017-12-20] MEDS: LISINOPRIL 20 MG TAB PO SCH (08:02)
[2017-12-20] MEDS: VANCOMYCIN INJ 1,250 MG in SODIUM CHLOR 0.9% 250 ML INJ 250 ML IV SCH (08:02)
[2017-12-20] MEDS: ASPIRIN 81 MG CHEW TAB CHEW SCH (08:03)
[2017-12-20] MEDS: ATENOLOL 50 MG TAB PO SCH (08:03)
[2017-12-20] MEDS: SODIUM CHLORIDE 0.9% FLUSH 10 ML FLUSH IV FLUSH SCH ×2 (08:04→20:56)
[2017-12-20] MEDS: PANTOPRAZOLE SOD 40 MG DELAYED RELEASE TAB PO SCH (08:04)
--- NOTE | 2017-12-20 08:55 | PD.CONS ---
History of Present Illness Service Infectious disease Consult Requested By Dr Mary Espinoza Reason for Consult Bacteremia Primary Care Physician Non-Staff Diagnoses: (1) Staphylococcus aureus septicemia (2) Sepsis Past Family Social History Allergies: Coded Allergies: Sulfa (Sulfonamide Antibiotics) (Verified Allergy, Severe, Hives, 12/18/17) Physical Exam Vital Signs Vital Signs Date Time Temp Pulse Resp B/P (MAP) Pulse Ox O2 Delivery O2 Flow Rate FiO2 12/20/17 04:00 97.8 12/20/17 01:10 Nasal Cannula 2.00 12/20/17 00:00 100.0 82 20 135/63 (87) 91 12/19/17 20:56 99.7 12/19/17 20:00 100.2 72 20 147/65 (92) 96 12/19/17 16:00 101.7 72 20 142/68 (92) 92 12/19/17 12:00 97.7 78 20 132/59 (83) 95 Physical Exam GENERAL: This is a well-nourished, well-developed patient, in no apparent distress. SKIN: No rashes, ecchymoses or lesions. Cool and dry. HEAD: Atraumatic. Normocephalic. No temporal or scalp tenderness. EYES: Pupils equal round and reactive. Extraocular motions intact. No scleral icterus. No injection or drainage. ENT: Nose without bleeding, purulent drainage or septal hematoma. Throat without erythema, tonsillar hypertrophy or exudate. Uvula midline. Airway patent. NECK: Trachea midline. No JVD or lymphadenopathy. Supple, nontender, no meningeal signs. CARDIOVASCULAR: Regular rate and rhythm without murmurs, gallops, or rubs. RESPIRATORY: Clear to auscultation. Breath sounds equal bilaterally. No wheezes , rales, or rhonchi. GASTROINTESTINAL: Abdomen soft, non-tender, nondistended. No hepato-splenomegaly , or palpable masses. No guarding. MUSCULOSKELETAL: Extremities without clubbing, cyanosis, or edema. No joint tenderness, effusion, or edema noted. No calf tenderness. Negative Homans sign bilaterally. NEUROLOGICAL: Awake and alert. Cranial nerves II through XII intact. Motor and sensory grossly within normal limits. Five out of 5 muscle strength in all muscle groups. Normal speech. Laboratory Laboratory Tests Test 12/19/17 15:50 12/20/17 05:02 Troponin I 0.02 White Blood Count 7.4 Red Blood Count 3.69 Hemoglobin 11.0 Hematocrit 34.3 Mean Corpuscular Volume 93.0 Mean Corpuscular Hemoglobin 29.8 Mean Corpuscular Hemoglobin Concent 32.1 Red Cell Distribution Width 13.2 Platelet Count 98 Mean Platelet Volume 9.6 Neutrophils (%) (Auto) 72.6 Lymphocytes (%) (Auto) 18.7 Monocytes (%) (Auto) 8.1 Eosinophils (%) (Auto) 0.2 Basophils (%) (Auto) 0.4 Neutrophils # (Auto) 5.4 Lymphocytes # (Auto) 1.4 Monocytes # (Auto) 0.6 Eosinophils # (Auto) 0.0 Basophils # (Auto) 0.0 CBC Comment DIFF FINAL Differential Comment Blood Urea Nitrogen 9 Creatinine 0.59 Random Glucose 144 Total Protein 5.6 Albumin 2.1 Calcium Level 7.7 Alkaline Phosphatase 57 Aspartate Amino Transf (AST/SGOT) 55 Alanine Aminotransferase (ALT/SGPT) 45 Total Bilirubin 0.3 Sodium Level 139 Potassium Level 3.3 Chloride Level 108 Carbon Dioxide Level 24.0 Anion Gap 7 Estimat Glomerular Filtration Rate 99 Date/Time Source Procedure Growth Status 12/18/17 15:25 Blood Peripheral Aerobic Blood Culture - Preliminary Gram Positive Cocci Resulted 12/18/17 15:25 Anaerobic Blood Culture - Preliminary Gram Positive Cocci Resulted 12/18/17 15:25 Nasal Aspirate Influenza Types A,B Antigen (NENITA) - Final NEGATIVE FOR FLU A AND B ANTIGEN.... Complete 12/18/17 16:40 Urine Clean Catch Urine Culture - Preliminary Staphylococcus Aureus Resulted Result Diagram: 12/20/17 0502 12/20/17 0502 Assessment and Plan Problem List: (1) Sepsis ICD Codes: A41.9 - Sepsis, unspecified organism Status: Acute (2) Staphylococcus aureus septicemia ICD Codes: A41.01 - Sepsis due to Methicillin susceptible Staphylococcus aureus Plan: Source of bacteremia uncertain Urine is abnormal but need to look to make sure no other source Continue IV Vancomycin Stop Ceftriaxone IV Cefazolin 2 g q8hrs Repeat Blood culture Check Echocardiogram (3) UTI (urinary tract infection) ICD Codes: N39.0 - Urinary tract infection, site not specified Status: Acute (4) LFT elevation ICD Codes: R79.89 - Other specified abnormal findings of blood chemistry Problem Qualifiers (1) Sepsis: Qualified Codes: A41.9 - Sepsis, unspecified organism (2) UTI (urinary tract infection): Qualified Codes: N30.00 - Acute cystitis without hematuria Vale Berry MD Dec 20, 2017 08:55
[2017-12-20] MEDS ORDERED: FUROSEMIDE 20 MG TAB PO ONE (11:00)
[2017-12-20] MEDS: ceFAZolin 2 GM PREMIX 50 ML IV SCH ×2 (11:15→17:06)
[2017-12-20] MEDS ORDERED: DEXTROSE 50% IN WATER 50 ML VIAL(D50) IV PUSH PRN (11:45)
[2017-12-20] MEDS ORDERED: GLUCAGON 1 MG/ML VIAL OTHER PRN (11:45)
--- NOTE | 2017-12-20 11:53 | HHI.PR ---
Subjective Remarks Patient seen and evaluated today in follow-up for bacteremia which appears to be related to urinary tract infection.Hypoxemia and fever noted patient feels weaker today. Objective Vitals Vital Signs Date Time Temp Pulse Resp B/P (MAP) Pulse Ox O2 Delivery O2 Flow Rate FiO2 12/20/17 09:03 96.2 61 16 140/63 (88) 95 12/20/17 04:00 97.8 12/20/17 01:10 Nasal Cannula 2.00 12/20/17 00:00 100.0 82 20 135/63 (87) 91 12/19/17 20:56 99.7 12/19/17 20:00 100.2 72 20 147/65 (92) 96 12/19/17 16:00 101.7 72 20 142/68 (92) 92 12/19/17 12:00 97.7 78 20 132/59 (83) 95 I/O 12/19/17 12/19/17 12/19/17 12/20/17 12/20/17 12/20/17 07:00 15:00 23:00 07:00 15:00 23:00 Intake Total 1615 ml 480 ml 1000 ml 620 ml Balance 1615 ml 480 ml 1000 ml 620 ml Intake Oral 360 ml 480 ml 620 ml IV Total 1255 ml 1000 ml # Voids 1 3 3 # Bowel Movements 1 1 Result Diagram: 12/20/17 0502 12/20/17 0502 Imaging Last Impressions Chest X-Ray 12/18/17 0000 Signed Impressions: Service Date/Time: Monday, December 18, 2017 15:32 - CONCLUSION: No acute cardiopulmonary disease. Jhonny Thompson Jr., MD A/P Problem List: (1) Bacteremia ICD Code: R78.81 - Bacteremia Plan: Etiology unclear at this time. Patient denies IV drug use, she has no recent procedures. She has never had any bacterial infections before May be due to MSSA urinary tract infection however urine cultures are still pending. Patient doing well with current antibiotics IV vancomycin and cefazolin Fever has returned (2) UTI (urinary tract infection) ICD Code: N39.0 - Urinary tract infection, site not specified Status: Acute Plan: Continue cefazolin and vancomycin ID following Likely staph aureus related non-MRSA (3) Sepsis ICD Code: A41.9 - Sepsis, unspecified organism Status: Acute Plan: Heart rate but still with fever Patient with bacteremia and UTI We'll continue empiric cefazolin and vancomycin for now and follow up with infectious disease team (4) Hyperglycemia ICD Code: R73.9 - Hyperglycemia, unspecified Plan: Patient has no history of diabetes and this may be hyperglycemia related to sepsis, Follow-up hemoglobin A1c (5) LFT elevation ICD Code: R79.89 - Other specified abnormal findings of blood chemistry Plan: Overall improved but not normal Patient again denies any alcohol dependence and on follow-up ultrasound, hepatitis panel pending, lipid panel (6) Hypokalemia ICD Code: E87.6 - Hypokalemia Plan: We will replace and follow trend (7) Thrombocytopenia ICD Code: D69.6 - Thrombocytopenia, unspecified Plan: Platelets appear to be dropping, no evidence of bleeding at this time Patient has no history of thrombocytopenia that she is aware of We will follow trend May be due to sepsis versus intrinsic issues (8) Hypoxemia ICD Code: R09.02 - Hypoxemia Plan: May be fluid related, weight up 4 kg We will try Lasix for improvement, if no improvement may repeat x-ray of the chest Problem Qualifiers (1) UTI (urinary tract infection): Qualified Codes: N30.00 - Acute cystitis without hematuria (2) Sepsis: Qualified Codes: A41.9 - Sepsis, unspecified organism Mary Espinoza MD Dec 20, 2017 11:53
[2017-12-20] MEDS ORDERED: VANCOMYCIN INJ 1,250 MG in SODIUM CHLOR 0.9% 250 ML INJ 250 ML IV SCH ×4 (13:00)
[2017-12-20] MEDS ORDERED: VANCOMYCIN 1 GM/200 ML PREMIX IV SCH (13:00)
[2017-12-20] MEDS ORDERED: POTASSIUM CHLORIDE 10 MEQ CONTROLLED RELEASE TAB PO ONE (13:00)
--- NOTE | 2017-12-20 13:40 | RADRPT ---
EXAM DATE/TIME: 12/20/2017 12:11 [facility] COMPARISON: No previous studies available for comparison. INDICATIONS : Increased lab values. MEDICAL HISTORY : Hypercholesterolemia. Hypertension. Gastroesophageal reflux disease. Kidney stones. Hypothyroidism. SURGICAL HISTORY : Hysterectomy. ENCOUNTER: Initial ACUITY: 2 days PAIN SCORE: 2/10 LOCATION: Bilateral upper quadrant MEASUREMENTS: LIVER: 13.8 cm length COMMON DUCT: 7 mm RIGHT KIDNEY: 9.5 x 4.8 x 6.5 cm SPLEEN: 9.6 cm length FINDINGS: LIVER: Normal echotexture without focal lesion or ductal dilatation. COMMON DUCT: No intraluminal mass or stone visualized. GALLBLADDER: Contains no stones, demonstrates no wall thickening or pericholecystic fluid. PANCREAS: The visualized portions are within normal limits. RIGHT KIDNEY: No hydronephrosis, stone or mass. SPLEEN: No focal lesion. CONCLUSION: 1. No evidence of gallstones or biliary tract obstruction. 2. Unremarkable exam. Ascencion Freed MD on December 20, 2017 at 13:38 Board Certified Radiologist. This report was verified electronically.
[2017-12-20] MEDS: INSULIN ASPART SUPPLEMENTAL SCALE SQ SCH ×3 (14:02→20:56)
[2017-12-20] MEDS: PRAVASTATIN SOD 40 MG TAB PO SCH (20:55)
--- NOTE | 2017-12-20 21:37 | EKG ---
Date Performed: 12/19/2017 Time Performed: 16:08:54 PTAGE: 77 years EKG: Sinus rhythm NORMAL ECG PREVIOUS TRACING : 12/18/2017 15.09 No significant change from previous tracing noted. DOCTOR: Quang Hanson Interpretating Date/Time 12/20/2017 21:37:00
[2017-12-20 21:47] LABS: HEMOGLOBIN A1C 6.5 % (4.3-6.0)
[2017-12-21] VITALS: BP 135/61; PULSE 66; RESP 20; TEMP 98.9; O2SAT 92
[2017-12-21] MEDS: ceFAZolin 2 GM PREMIX 50 ML IV SCH ×3 (01:49→17:53)
[2017-12-21 04:00] VITALS: BP 124/58; PULSE 59; RESP 20; TEMP 99.1; O2SAT 94
[2017-12-21] MEDS: LEVOTHYROXINE SODIUM 50 MCG TAB PO SCH (04:51)
[2017-12-21] MEDS: HEPARIN SODIUM - SQ 10,000 UNITS/ML VIAL SQ SCH ×3 (04:51→20:51)
[2017-12-21 06:44] LABS: AUTOMATED NEUTROPHIL # 4.6 TH/MM3 (1.8-7.7); BASOPHIL % 0.6 % (0.0-2.0); EOSINOPHIL # 0.1 TH/MM3 (0-0.4); EOSINOPHIL % 1.1 % (0.0-4.0); HEMATOCRIT 33.6 % (35.0-46.0); LYMPH % 22.9 % (9.0-44.0); LYMPHOCYTE # 1.6 TH/MM3 (1.0-4.8); MEAN CELL VOLUME 91.4 FL (80.0-100.0); MEAN CORPUSCULAR HEMOGLOBIN 29.9 PG (27.0-34.0); MEAN CORPUSCULAR HGB CONC 32.7 % (32.0-36.0); MEAN PLATELET VOLUME 10.4 FL (7.0-11.0); MONO % 7.8 % (0.0-8.0); MONOCYTE # 0.5 TH/MM3 (0-0.9); NEUT % 67.6 % (16.0-70.0); PLATELET COUNT 120 TH/MM3 (150-450); RED BLOOD COUNT 3.67 MIL/MM3 (4.00-5.30); RED CELL DISTRIBUTION WIDTH 12.8 % (11.6-17.2); WHITE BLOOD COUNT 6.8 TH/MM3 (4.0-11.0)
[2017-12-21] MEDS: INSULIN ASPART SUPPLEMENTAL SCALE SQ SCH ×4 (07:54→20:51)
[2017-12-21 08:30] VITALS: BP 117/66; PULSE 73; RESP 16; TEMP 99.3; O2SAT 94
[2017-12-21] MEDS: amLODIPine BESYLATE 5 MG TAB PO SCH (09:58)
[2017-12-21] MEDS: PANTOPRAZOLE SOD 40 MG DELAYED RELEASE TAB PO SCH (09:59)
[2017-12-21] MEDS: ASPIRIN 81 MG CHEW TAB CHEW SCH (09:59)
[2017-12-21] MEDS: ATENOLOL 50 MG TAB PO SCH (09:59)
[2017-12-21] MEDS: LISINOPRIL 20 MG TAB PO SCH (09:59)
[2017-12-21] MEDS: SODIUM CHLORIDE 0.9% FLUSH 10 ML FLUSH IV FLUSH SCH ×2 (10:00→19:29)
[2017-12-21] MEDS: VANCOMYCIN INJ 1,250 MG in SODIUM CHLOR 0.9% 250 ML INJ 250 ML IV SCH (10:00)
[2017-12-21 12:00] VITALS: BP 120/56; PULSE 60; RESP 16; TEMP 96; O2SAT 95
[2017-12-21 12:10] LABS: CHOLESTEROL/ HDL RATIO 6.56 RATIO; HDL CHOLESTEROL 16.6 MG/DL (40.0-60.0)
--- NOTE | 2017-12-21 14:08 | ECHRPT ---
Indication: SEPSIS. POSS ENDOCARDITIS CONCLUSIONS The left ventricular systolic function is normal with an estimated ejection fraction in the range of 60-65%. Trace mitral valve regurgitation. Mild aortic valve regurgitation. BP: 117 / 66 HR: 83 Rhythm: Sinus MEASUREMENTS (Male / Female) Normal Values Technical Quality:Fair 2D ECHO LV Diastolic Diameter PLAX 4.4 cm 4.2 - 5.9 / 3.9 - 5.3 cm LV Systolic Diameter PLAX 3.0 cm IVS Diastolic Thickness 1.1 cm 0.6 - 1.0 / 0.6 - 0.9 cm LVPW Diastolic Thickness 1.1 cm 0.6 - 1.0 / 0.6 - 0.9 cm LV Relative Wall Thickness 0.5 LVOT Diameter 1.8 cm LA Systolic Diameter LX 4.0 cm 3.0 - 4.0 / 2.7 - 3.8 cm LV Ejection Fraction MOD 4C 69.4 % LV Cardiac Index MOD 4C 2766.7 cm/minm LV Ejection Fraction 4C AL 70.5 % LV Cardiac Index 4C AL 2916.3 cm/minm M-MODE Aortic Root Diameter MM 2.0 cm LA Systolic Diameter MM 3.9 cm LA Ao Ratio MM 2.0 AV Cusp Separation MM 1.8 cm DOPPLER AV Peak Velocity 150.0 cm/s AV Peak Gradient 9.0 mmHg AI Peak Velocity 376.0 cm/s AI Peak Gradient 56.6 mmHg AI Pressure Half Time 520.5 ms LVOT Peak Velocity 105.0 cm/s LVOT Peak Gradient 4.4 mmHg AV Area Cont Eq pk 1.8 cm MV Area PHT 1.8 cm Mitral E Point Velocity 88.8 cm/s Mitral A Point Velocity 87.4 cm/s Mitral E to A Ratio 1.0 PV Peak Velocity 81.4 cm/s PV Peak Gradient 2.7 mmHg FINDINGS LEFT VENTRICLE The left ventricular systolic function is normal with an estimated ejection fraction in the range of 60-65%. Normal left ventricular size. Wall thickness is normal. RIGHT VENTRICLE Normal right ventricular size and systolic function. LEFT ATRIUM The left atrial size is upper limits of normal. RIGHT ATRIUM The right atrial size is normal. ATRIAL SEPTUM Normal atrial septal thickness AORTA The aortic root and proximal ascending aorta are normal in size on limited imaging. MITRAL VALVE Structurally normal mitral valve. Trace mitral valve regurgitation. No mitral valve stenosis. AORTIC VALVE Trileaflet aortic valve. Aortic valve sclerosis is present. Mild aortic valve regurgitation. TRICUSPID VALVE Structurally normal tricuspid valve. No tricuspid valve stenosis or regurgitation. PULMONARY VALVE The pulmonary valve is not well visualized. VESSELS The inferior vena cava is normal in size. PERICARDIUM No pericardial effusion. Kevin Pinedo DO (Electronically Signed) Final Date:21 December 2017 14:07
[2017-12-21 15:02] LABS: HEPATITIS A AB IGM NEGATIVE (NEGATIVE); HEPATITIS B CORE AB IGM NEGATIVE (NEGATIVE)
[2017-12-21 16:00] VITALS: BP 139/67; PULSE 61; RESP 16; TEMP 98.4; O2SAT 96
--- NOTE | 2017-12-21 16:00 | HHI.IDPN ---
Subjective Subjective Remarks Feels fatigued No fever Antibiotics Vancomycin and Cefazolin Lines Peripheral IV line Past Medical History Hypertension Hypothyroidism GERD Renal stones Intermittent tachycardia (on a beta arcadio) Past Surgical History Hysterectomy Allergies: Coded Allergies: Sulfa (Sulfonamide Antibiotics) (Verified Allergy, Severe, Hives, 12/18/17) Review of Systems Constitutional Constitutional Remarks No fever Objective . Vital Signs Date Time Temp Pulse Resp B/P (MAP) Pulse Ox O2 Delivery O2 Flow Rate FiO2 12/21/17 12:00 96.0 60 16 120/56 (77) 95 12/21/17 08:30 99.3 73 16 117/66 (83) 94 12/21/17 04:00 99.1 59 20 124/58 (80) 94 12/21/17 00:00 98.9 66 20 135/61 (85) 92 12/20/17 20:30 95 21 12/20/17 20:00 99.6 77 20 136/63 (87) 92 12/20/17 17:26 98.5 67 18 134/63 (86) 95 12/21/17 12/21/17 12/22/17 15:00 23:00 07:00 Intake Total 362.5 ml Balance 362.5 ml IV Total 362.5 ml . Laboratory Tests Test 12/20/17 05:02 12/21/17 05:50 White Blood Count 7.4 TH/MM3 6.8 TH/MM3 Red Blood Count 3.69 MIL/MM3 3.67 MIL/MM3 Hemoglobin 11.0 GM/DL 11.0 GM/DL Hematocrit 34.3 % 33.6 % Mean Corpuscular Volume 93.0 FL 91.4 FL Mean Corpuscular Hemoglobin 29.8 PG 29.9 PG Mean Corpuscular Hemoglobin Concent 32.1 % 32.7 % Red Cell Distribution Width 13.2 % 12.8 % Platelet Count 98 TH/MM3 120 TH/MM3 Mean Platelet Volume 9.6 FL 10.4 FL Neutrophils (%) (Auto) 72.6 % 67.6 % Lymphocytes (%) (Auto) 18.7 % 22.9 % Monocytes (%) (Auto) 8.1 % 7.8 % Eosinophils (%) (Auto) 0.2 % 1.1 % Basophils (%) (Auto) 0.4 % 0.6 % Neutrophils # (Auto) 5.4 TH/MM3 4.6 TH/MM3 Lymphocytes # (Auto) 1.4 TH/MM3 1.6 TH/MM3 Monocytes # (Auto) 0.6 TH/MM3 0.5 TH/MM3 Eosinophils # (Auto) 0.0 TH/MM3 0.1 TH/MM3 Basophils # (Auto) 0.0 TH/MM3 0.0 TH/MM3 CBC Comment DIFF FINAL DIFF FINAL Differential Comment Laboratory Tests Test 12/20/17 05:02 12/20/17 12:43 12/21/17 05:50 Blood Urea Nitrogen 9 MG/DL Creatinine 0.59 MG/DL Random Glucose 144 MG/DL Total Protein 5.6 GM/DL Albumin 2.1 GM/DL Calcium Level 7.7 MG/DL Alkaline Phosphatase 57 U/L Aspartate Amino Transf (AST/SGOT) 55 U/L Alanine Aminotransferase (ALT/SGPT) 45 U/L Total Bilirubin 0.3 MG/DL Sodium Level 139 MEQ/L Potassium Level 3.3 MEQ/L Chloride Level 108 MEQ/L Carbon Dioxide Level 24.0 MEQ/L Anion Gap 7 MEQ/L Estimat Glomerular Filtration Rate 99 ML/MIN Hemoglobin A1c 6.5 % Triglycerides Level 255 MG/DL Cholesterol Level 109 MG/DL LDL Cholesterol 41 MG/DL HDL Cholesterol 16.6 MG/DL Cholesterol/HDL Ratio 6.56 RATIO Microbiology Date/Time Source Procedure Growth Status 12/21/17 12:55 Blood Peripheral Aerobic Blood Culture Pending Received 12/21/17 12:55 Blood Peripheral Anaerobic Blood Culture Pending Received 12/20/17 09:30 Blood Peripheral Aerobic Blood Culture - Preliminary Gram Positive Cocci Resulted 12/20/17 09:30 Blood Peripheral Anaerobic Blood Culture - Preliminary NO GROWTH IN 1 DAY Resulted 12/20/17 09:20 Blood Peripheral Aerobic Blood Culture - Preliminary Gram Positive Cocci Resulted 12/20/17 09:20 Blood Peripheral Anaerobic Blood Culture - Preliminary NO GROWTH IN 1 DAY Resulted 12/18/17 16:40 Urine Clean Catch Urine Culture - Final Staphylococcus Aureus Complete Physical Exam GENERAL: This is a elderly patient, in no apparent distress. SKIN: No rashes, ecchymoses or lesions. Cool and dry. HEAD: Atraumatic. Normocephalic. No temporal or scalp tenderness. EYES: Pupils equal round and reactive. Extraocular motions intact. No scleral icterus. No injection or drainage. ENT: Nose without bleeding, purulent drainage or septal hematoma. Throat without erythema, tonsillar hypertrophy or exudate. Uvula midline. Airway patent. NECK: Trachea midline. No JVD or lymphadenopathy. Supple, nontender, no meningeal signs. CARDIOVASCULAR: Regular rate and rhythm without murmurs, gallops, or rubs. RESPIRATORY: Clear to auscultation. Breath sounds equal bilaterally. No wheezes , rales, or rhonchi. GASTROINTESTINAL: Abdomen soft, non-tender, nondistended. No hepato-splenomegaly , or palpable masses. No guarding. MUSCULOSKELETAL: Extremities without clubbing, cyanosis, or edema. No joint tenderness, effusion, or edema noted. No calf tenderness. Negative Homans sign bilaterally. NEUROLOGICAL: Awake and alert. Cranial nerves II through XII intact. Motor and sensory grossly within normal limits. Five out of 5 muscle strength in all muscle groups. Normal Assessment & Plan Diagnosis: (1) Sepsis ICD Codes: A41.9 - Sepsis, unspecified organism Status: Acute (2) Staphylococcus aureus septicemia ICD Codes: A41.01 - Sepsis due to Methicillin susceptible Staphylococcus aureus Plan: Source of bacteremia uncertain Urine is abnormal but need to look to make sure no other source Stop IV Vancomycin Continue IV Cefazolin 2 g q8hrs Repeat Blood culture is positive Will require a ESTHER (3) UTI (urinary tract infection) ICD Codes: N39.0 - Urinary tract infection, site not specified Status: Acute (4) LFT elevation ICD Codes: R79.89 - Other specified abnormal findings of blood chemistry Problem Qualifiers (1) Sepsis: Qualified Codes: A41.9 - Sepsis, unspecified organism (2) UTI (urinary tract infection): Qualified Codes: N30.00 - Acute cystitis without hematuria Vale Berry MD Dec 21, 2017 16:00
--- NOTE | 2017-12-21 19:19 | HHI.PR ---
Subjective Remarks Positive blood cultures from 12/18/17 and 12/20/17. 12/18/17 blood cultures showed staph aureus. Urinary tract infection has also grown staph aureus. ID has recommended ESTHER. Patient reports that she is feeling better. Objective Vital Signs Date Time Temp Pulse Resp B/P (MAP) Pulse Ox O2 Delivery O2 Flow Rate FiO2 12/21/17 16:00 98.4 61 16 139/67 (91) 96 12/21/17 12:00 96.0 60 16 120/56 (77) 95 12/21/17 08:30 99.3 73 16 117/66 (83) 94 12/21/17 04:00 99.1 59 20 124/58 (80) 94 12/21/17 00:00 98.9 66 20 135/61 (85) 92 12/20/17 20:30 95 21 12/20/17 20:00 99.6 77 20 136/63 (87) 92 I/O 12/20/17 12/20/17 12/20/17 12/21/17 12/21/17 12/21/17 07:00 15:00 23:00 07:00 15:00 23:00 Intake Total 1000 ml 620 ml 1312.5 ml 170 ml 362.5 ml 290 ml Balance 1000 ml 620 ml 1312.5 ml 170 ml 362.5 ml 290 ml Intake Oral 620 ml 1000 ml 120 ml 240 ml IV Total 1000 ml 312.5 ml 50 ml 362.5 ml 50 ml # Voids 3 6 2 2 # Bowel Movements 1 1 0 Result Diagram: 12/21/17 0550 12/20/17 0502 Objective Remarks GENERAL: NAD, A&Ox3 HEAD: Normocephalic. NECK: Supple, trachea midline. No lymphadenopathy. EYES: No scleral icterus. No injection or drainage. CARDIOVASCULAR: Regular rate and rhythm without murmurs, gallops, or rubs. RESPIRATORY: Breath sounds equal bilaterally. No accessory muscle use. GASTROINTESTINAL: Abdomen soft, non-tender, nondistended. MUSCULOSKELETAL: No cyanosis, or edema. SKIN: Warm and dry. NEURO: No focal neurological deficitis. A/P Problem List: (1) Staphylococcus aureus septicemia ICD Code: A41.01 - Sepsis due to Methicillin susceptible Staphylococcus aureus (2) Bacteremia ICD Code: R78.81 - Bacteremia (3) UTI (urinary tract infection) ICD Code: N39.0 - Urinary tract infection, site not specified Status: Acute (4) Sepsis ICD Code: A41.9 - Sepsis, unspecified organism Status: Acute Assessment and Plan 77-year-old female admitted secondary to urinary tract infection with sepsis and bacteremia Sepsis Resolved Bacteremia Urinary tract infection Staph aureus on cultures of urine and blood Repeat cultures are also positive A new set of culture obtained today Continue IV vancomycin and cephalosporins along ID following Obtain ESTHER Hyperglycemia Follow blood sugars Slight elevation in hemoglobin A1c Borderline versus mild diabetes Insulin sliding scale Diabetic diet LFT elevation Follow LFTs Hypokalemia Monitor and replace as needed Thrombocytopenia Improving today May have been reactive Follow platelets Hypoxemia Provide oxygen as needed Currently this has improved DVT prophylaxis SCDs Caution with blood thinners given, thrombocytopenia Problem Qualifiers (1) UTI (urinary tract infection): Qualified Codes: N30.00 - Acute cystitis without hematuria (2) Sepsis: Qualified Codes: A41.9 - Sepsis, unspecified organism Wojciech Ayala MD Dec 21, 2017 19:19
[2017-12-21] MEDS: PRAVASTATIN SOD 40 MG TAB PO SCH (20:50)
[2017-12-21 20:51] VITALS: BP 135/58; PULSE 66; RESP 16; TEMP 99.3; O2SAT 96
[2017-12-22 00:07] VITALS: BP 143/63; PULSE 68; RESP 16; TEMP 99.3; O2SAT 98
[2017-12-22] MEDS: ceFAZolin 2 GM PREMIX 50 ML IV SCH ×3 (02:00→17:45)
[2017-12-22] MEDS: LEVOTHYROXINE SODIUM 50 MCG TAB PO SCH (05:33)
[2017-12-22] MEDS: HEPARIN SODIUM - SQ 10,000 UNITS/ML VIAL SQ SCH ×3 (05:33→20:17)
[2017-12-22 07:38] VITALS: BP 149/67; PULSE 59; RESP 20; TEMP 99.6; O2SAT 92
[2017-12-22] MEDS: PANTOPRAZOLE SOD 40 MG DELAYED RELEASE TAB PO SCH (07:54)
[2017-12-22] MEDS: ATENOLOL 50 MG TAB PO SCH (07:54)
[2017-12-22] MEDS: amLODIPine BESYLATE 5 MG TAB PO SCH ×2 (07:54→09:14)
[2017-12-22] MEDS: ASPIRIN 81 MG CHEW TAB CHEW SCH (07:54)
[2017-12-22] MEDS: INSULIN ASPART SUPPLEMENTAL SCALE SQ SCH ×4 (08:00→20:18)
[2017-12-22] MEDS ORDERED: VANCOMYCIN TROUGH ONE (08:45)
[2017-12-22] MEDS: LISINOPRIL 20 MG TAB PO SCH (09:00)
[2017-12-22] MEDS: SODIUM CHLORIDE 0.9% FLUSH 10 ML FLUSH IV FLUSH SCH ×2 (09:00→20:17)
[2017-12-22 10:00] LABS: CHLORIDE 102 MEQ/L (98-107); SODIUM (NA) 137 MEQ/L (136-145)
[2017-12-22 10:03] LABS: CALCIUM 8.5 MG/DL (8.5-10.1)
[2017-12-22 10:04] LABS: ALBUMIN 2.5 GM/DL (3.4-5.0); BICARBONATE 25.3 MEQ/L (21.0-32.0); GLUCOSE,RANDOM 182 MG/DL (74-106)
[2017-12-22 10:05] LABS: BLOOD UREA NITROGEN 8 MG/DL (7-18)
[2017-12-22 10:06] LABS: AUTOMATED NEUTROPHIL # 4.3 TH/MM3 (1.8-7.7); BASOPHIL # 0.1 TH/MM3 (0-0.2); EOSINOPHIL # 0.2 TH/MM3 (0-0.4); EOSINOPHIL % 2.6 % (0.0-4.0); HEMATOCRIT 36.6 % (35.0-46.0); HEMOGLOBIN 12.2 GM/DL (11.6-15.3); LYMPH % 29.1 % (9.0-44.0); LYMPHOCYTE # 2.1 TH/MM3 (1.0-4.8); MEAN CELL VOLUME 92.3 FL (80.0-100.0); MEAN CORPUSCULAR HEMOGLOBIN 30.7 PG (27.0-34.0); MEAN CORPUSCULAR HGB CONC 33.2 % (32.0-36.0); MEAN PLATELET VOLUME 9.9 FL (7.0-11.0); MONO % 7.3 % (0.0-8.0); MONOCYTE # 0.5 TH/MM3 (0-0.9); RED BLOOD COUNT 3.97 MIL/MM3 (4.00-5.30); RED CELL DISTRIBUTION WIDTH 12.8 % (11.6-17.2); WHITE BLOOD COUNT 7.2 TH/MM3 (4.0-11.0)
[2017-12-22 10:07] LABS: ALT (GPT) 60 U/L (10-53); AST (GOT) 60 U/L (15-37); GLOMERULAR FILTRATION RATE 81 ML/MIN (>89)
[2017-12-22 10:08] LABS: PLATELET COUNT 180 TH/MM3 (150-450); TOTAL BILIRUBIN ADULT 0.5 MG/DL (0.2-1.0); TOTAL PROTEIN 6.9 GM/DL (6.4-8.2)
[2017-12-22 10:09] LABS: ALKALINE PHOSPHATASE 87 U/L (45-117)
[2017-12-22 11:49] LABS: VANCOMYCIN TROUGH 3.9 MCG/ML (5.0-10.0)
[2017-12-22 12:00] VITALS: BP 120/57; PULSE 56; RESP 20; TEMP 98; O2SAT 94
--- NOTE | 2017-12-22 15:20 | HHI.PR ---
Subjective Remarks Blood culture from 12/21/12 is negative at 24 hours. ESTHER is pending. Blood work shows hypokalemia today. Objective Vital Signs Date Time Temp Pulse Resp B/P (MAP) Pulse Ox O2 Delivery O2 Flow Rate FiO2 12/22/17 12:00 98.0 56 20 120/57 (78) 94 12/22/17 07:38 99.6 59 20 149/67 (94) 92 12/22/17 04:47 12/22/17 00:07 99.3 68 16 143/63 (89) 98 12/21/17 20:51 99.3 66 16 135/58 (83) 96 12/21/17 16:00 98.4 61 16 139/67 (91) 96 I/O 12/21/17 12/21/17 12/21/17 12/22/17 12/22/17 12/22/17 07:00 15:00 23:00 07:00 15:00 23:00 Intake Total 170 ml 362.5 ml 290 ml 600 ml Balance 170 ml 362.5 ml 290 ml 600 ml Intake Oral 120 ml 240 ml 600 ml IV Total 50 ml 362.5 ml 50 ml # Voids 2 2 7 7 # Bowel Movements 0 0 1 Result Diagram: 12/22/1792412/22/17924 Objective Remarks GENERAL: NAD, A&Ox3 HEAD: Normocephalic. NECK: Supple, trachea midline. No lymphadenopathy. EYES: No scleral icterus. No injection or drainage. CARDIOVASCULAR: Regular rate and rhythm without murmurs, gallops, or rubs. RESPIRATORY: Breath sounds equal bilaterally. No accessory muscle use. GASTROINTESTINAL: Abdomen soft, non-tender, nondistended. MUSCULOSKELETAL: No cyanosis, or edema. SKIN: Warm and dry. NEURO: No focal neurological deficitis. A/P Problem List: (1) Staphylococcus aureus septicemia ICD Code: A41.01 - Sepsis due to Methicillin susceptible Staphylococcus aureus (2) Bacteremia ICD Code: R78.81 - Bacteremia (3) UTI (urinary tract infection) ICD Code: N39.0 - Urinary tract infection, site not specified Status: Acute (4) Sepsis ICD Code: A41.9 - Sepsis, unspecified organism Status: Acute Assessment and Plan 77-year-old female admitted secondary to urinary tract infection with sepsis and bacteremia ESTHER pending. Labs reviewed. Hypokalemia present. Continue to monitor labs. Labs ordered for further monitoring. Continue to monitor for hypokalemia replace levels as needed. Sepsis Resolved Bacteremia Urinary tract infection Staph aureus on cultures of urine and blood Repeat cultures are also positive A new set of culture obtained today Continue IV vancomycin and cephalosporins along ID following Obtain ESTHER Hyperglycemia Follow blood sugars Slight elevation in hemoglobin A1c Borderline versus mild diabetes Insulin sliding scale Diabetic diet LFT elevation Follow LFTs Hypokalemia Monitor and replace as needed Thrombocytopenia Improving today May have been reactive Follow platelets Hypoxemia Provide oxygen as needed Currently this has improved DVT prophylaxis SCDs Caution with blood thinners given, thrombocytopenia Problem Qualifiers (1) UTI (urinary tract infection): Qualified Codes: N30.00 - Acute cystitis without hematuria (2) Sepsis: Qualified Codes: A41.9 - Sepsis, unspecified organism Wojciech Ayala MD Dec 22, 2017 15:20
[2017-12-22] MEDS ORDERED: POTASSIUM CHLORIDE 10 MEQ CONTROLLED RELEASE TAB PO ONE (15:30)
[2017-12-22 16:00] VITALS: BP 152/67; PULSE 65; RESP 20; TEMP 97.2; O2SAT 94
[2017-12-22 20:00] VITALS: BP 150/89; PULSE 70; RESP 20; TEMP 99; O2SAT 96
[2017-12-22] MEDS: PRAVASTATIN SOD 40 MG TAB PO SCH (20:16)
[2017-12-23] VITALS (12 sets, daily range): BP systolic 128–147; BP diastolic 57–78; PULSE 55–76; RESP 15–20; TEMP 96.3–98.6; O2SAT 94–97
[2017-12-23] MEDS: ceFAZolin 2 GM PREMIX 50 ML IV SCH ×3 (01:58→17:17)
[2017-12-23] MEDS: LEVOTHYROXINE SODIUM 50 MCG TAB PO SCH (06:08)
[2017-12-23] MEDS: HEPARIN SODIUM - SQ 10,000 UNITS/ML VIAL SQ SCH ×3 (06:12→21:50)
[2017-12-23 06:30] LABS: ALBUMIN 2.4 GM/DL (3.4-5.0); AST (GOT) 30 U/L (15-37); BICARBONATE 25.8 MEQ/L (21.0-32.0); BLOOD UREA NITROGEN 7 MG/DL (7-18); CALCIUM 8.5 MG/DL (8.5-10.1); CHLORIDE 107 MEQ/L (98-107); GLOMERULAR FILTRATION RATE 81 ML/MIN (>89); GLUCOSE,RANDOM 117 MG/DL (74-106); SODIUM (NA) 141 MEQ/L (136-145)
[2017-12-23 06:31] LABS: ALT (GPT) 42 U/L (10-53)
[2017-12-23 06:33] LABS: ALKALINE PHOSPHATASE 78 U/L (45-117); AUTOMATED NEUTROPHIL # 4.7 TH/MM3 (1.8-7.7); BASOPHIL % 0.6 % (0.0-2.0); EOSINOPHIL # 0.3 TH/MM3 (0-0.4); EOSINOPHIL % 3.3 % (0.0-4.0); LYMPHOCYTE # 2.5 TH/MM3 (1.0-4.8); MEAN CELL VOLUME 91.5 FL (80.0-100.0); MEAN CORPUSCULAR HEMOGLOBIN 31.4 PG (27.0-34.0); MEAN CORPUSCULAR HGB CONC 34.3 % (32.0-36.0); MEAN PLATELET VOLUME 9.3 FL (7.0-11.0); MONO % 9.6 % (0.0-8.0); MONOCYTE # 0.8 TH/MM3 (0-0.9); NEUT % 56.5 % (16.0-70.0); PLATELET COUNT 245 TH/MM3 (150-450); RED BLOOD COUNT 3.83 MIL/MM3 (4.00-5.30); RED CELL DISTRIBUTION WIDTH 13.4 % (11.6-17.2); TOTAL BILIRUBIN ADULT 0.4 MG/DL (0.2-1.0); TOTAL PROTEIN 6.4 GM/DL (6.4-8.2); WHITE BLOOD COUNT 8.2 TH/MM3 (4.0-11.0)
[2017-12-23] MEDS: INSULIN ASPART SUPPLEMENTAL SCALE SQ SCH ×4 (08:00→21:00)
[2017-12-23] MEDS: ASPIRIN 81 MG CHEW TAB CHEW SCH (08:30)
[2017-12-23] MEDS: PANTOPRAZOLE SOD 40 MG DELAYED RELEASE TAB PO SCH (08:30)
[2017-12-23] MEDS: amLODIPine BESYLATE 5 MG TAB PO SCH (08:30)
[2017-12-23] MEDS: ATENOLOL 50 MG TAB PO SCH (08:30)
[2017-12-23] MEDS: LISINOPRIL 20 MG TAB PO SCH (08:31)
[2017-12-23] MEDS: SODIUM CHLORIDE 0.9% FLUSH 10 ML FLUSH IV FLUSH SCH ×2 (08:31→21:50)
--- NOTE | 2017-12-23 09:37 | HHI.PR ---
Subjective Remarks This is a pleasant 77 y/o Female who is been followed due to Sepsis and Staphylococcus Aureus septicemia to continue Vancomycin, Stopped Ceftriaxone and continue Cefazolin 2 g every 8 hours. repeat blood cultures and check Echocardiogram Urinary tract infection. blood cultures negative, ESTHER performed by Doctor Craven early today and recommended to transfer back to [facility] Objective Vital Signs Date Time Temp Pulse Resp B/P (MAP) Pulse Ox O2 Delivery O2 Flow Rate FiO2 12/23/17 06:30 63 12/23/17 04:00 98.4 55 18 130/77 (94) 97 12/23/17 04:00 Room Air 12/23/17 04:00 55 12/23/17 00:00 70 12/23/17 00:00 98.6 76 20 135/78 (97) 95 12/23/17 00:00 Room Air 12/22/17 20:00 70 12/22/17 20:00 99.0 70 20 150/89 (109) 96 12/22/17 16:00 97.2 65 20 152/67 (95) 94 12/22/17 12:00 98.0 56 20 120/57 (78) 94 I/O 12/22/17 12/22/17 12/22/17 12/23/17 12/23/17 12/23/17 07:00 15:00 23:00 07:00 15:00 23:00 Intake Total 600 ml 100 ml 530 ml Balance 600 ml 100 ml 530 ml Intake Oral 600 ml 480 ml IV Total 100 ml 50 ml # Voids 7 7 3 # Bowel Movements 0 1 0 0 0 Result Diagram: 12/23/17 0511 12/23/17 0511 Imaging Last Impressions Liver Ultrasound 12/20/17 0000 Signed Impressions: Service Date/Time: December 12:11 - CONCLUSION: 1. No evidence of gallstones or biliary tract obstruction. 2. Unremarkable exam. Ascencion Freed MD Chest X-Ray 12/18/17 0000 Signed Impressions: Service Date/Time: Monday, December 18, 2017 15:32 - CONCLUSION: No acute cardiopulmonary disease. Jhonny Thompson Jr., MD Procedures None Other Results Laboratory Tests Test 12/18/17 15:08 12/18/17 16:40 12/19/17 06:09 12/19/17 15:50 Lactic Acid Level 1.3 mmol/L Urine Color ORANGE Urine Turbidity CLOUDY Urine pH 6.0 Urine Specific [place]field 1.020 Urine Protein 100 mg/dL Urine Glucose (UA) NEG mg/dL Urine Ketones 80 OR GREATER mg/dL Urine Occult Blood MOD Urine Nitrite NEG Urine Bilirubin NEG Urine Urobilinogen 1.0 MG/DL Urine Leukocyte Esterase TRACE Urine RBC 4-9 /hpf Urine WBC 15-19 /hpf Urine Squamous Epithelial Cells 6-8 /hpf Urine Amorphous Sediment FEW Urine Bacteria FEW /hpf Microscopic Urinalysis Comment CULTURE INDICATED Direct Bilirubin 0.2 MG/DL Indirect Bilirubin 0.3 MG/DL Troponin I 0.02 NG/ML Test 12/20/17 12:43 12/20/17 14:00 12/21/17 05:50 12/22/17 09:25 Hemoglobin A1c 6.5 % Hepatitis A IgM Antibody NEGATIVE Hepatitis B Surface Antigen NEGATIVE Hepatitis B Core IgM Antibody NEGATIVE Hepatitis C Antibody NEGATIVE Triglycerides Level 255 MG/DL Cholesterol Level 109 MG/DL LDL Cholesterol 41 MG/DL HDL Cholesterol 16.6 MG/DL Cholesterol/HDL Ratio 6.56 RATIO Vancomycin Level Trough 3.9 MCG/ML Test 12/23/17 05:11 White Blood Count 8.2 TH/MM3 Red Blood Count 3.83 MIL/MM3 Hemoglobin 12.0 GM/DL Hematocrit 35.0 % Mean Corpuscular Volume 91.5 FL Mean Corpuscular Hemoglobin 31.4 PG Mean Corpuscular Hemoglobin Concent 34.3 % Red Cell Distribution Width 13.4 % Platelet Count 245 TH/MM3 Mean Platelet Volume 9.3 FL Neutrophils (%) (Auto) 56.5 % Lymphocytes (%) (Auto) 30.0 % Monocytes (%) (Auto) 9.6 % Eosinophils (%) (Auto) 3.3 % Basophils (%) (Auto) 0.6 % Neutrophils # (Auto) 4.7 TH/MM3 Lymphocytes # (Auto) 2.5 TH/MM3 Monocytes # (Auto) 0.8 TH/MM3 Eosinophils # (Auto) 0.3 TH/MM3 Basophils # (Auto) 0.0 TH/MM3 CBC Comment DIFF FINAL Differential Comment Blood Urea Nitrogen 7 MG/DL Creatinine 0.70 MG/DL Random Glucose 117 MG/DL Total Protein 6.4 GM/DL Albumin 2.4 GM/DL Calcium Level 8.5 MG/DL Alkaline Phosphatase 78 U/L Aspartate Amino Transf (AST/SGOT) 30 U/L Alanine Aminotransferase (ALT/SGPT) 42 U/L Total Bilirubin 0.4 MG/DL Sodium Level 141 MEQ/L Potassium Level 3.6 MEQ/L Chloride Level 107 MEQ/L Carbon Dioxide Level 25.8 MEQ/L Anion Gap 8 MEQ/L Estimat Glomerular Filtration Rate 81 ML/MIN Objective Remarks GENERAL: NAD, A&Ox3 HEAD: Normocephalic. NECK: Supple, trachea midline. No lymphadenopathy. EYES: No scleral icterus. No injection or drainage. CARDIOVASCULAR: Regular rate and rhythm without murmurs, gallops, or rubs. RESPIRATORY: Breath sounds equal bilaterally. No accessory muscle use. GASTROINTESTINAL: Abdomen soft, non-tender, nondistended. MUSCULOSKELETAL: No cyanosis, or edema. SKIN: Warm and dry. NEURO: No focal neurological deficitis. Medications and IVs Current Medications Medications (Trade) Dose Ordered Sig/Adali Route Start Time Stop Time Status Last Admin (NS Flush) 2 ml UNSCH PRN IV FLUSH 12/18/17 18:00 (NS Flush) 2 ml BID IV FLUSH 12/18/17 21:00 12/23/17 08:31 (Narcan Inj) 0.4 mg UNSCH PRN IV PUSH 12/18/17 18:00 (Milk Of Magnesia Liq) 30 ml Q12H PRN PO 12/18/17 18:00 (Senokot) 17.2 mg Q12H PRN PO 12/18/17 18:00 (Dulcolax Supp) 10 mg DAILY PRN RECTAL 12/18/17 18:00 (Lactulose Liq) 30 ml DAILY PRN PO 12/18/17 18:00 (Tylenol) 650 mg Q4H PRN PO 12/18/17 21:00 12/20/17 00:23 (Aspirin Chew) 81 mg DAILY CHEW 12/19/17 13:00 12/23/17 08:30 (Tenormin) 50 mg DAILY PO 12/19/17 13:00 12/23/17 08:30 (Synthroid) 50 mcg DAILY@0600 PO 12/19/17 13:00 12/23/17 06:08 (Pravachol) 40 mg HS PO 12/19/17 21:00 12/22/17 20:16 (Heparin Inj) 5,000 units Q8HR SQ 12/19/17 14:00 12/23/17 06:12 (Protonix) 40 mg DAILY PO 12/19/17 13:00 12/23/17 08:30 (Norvasc) 5 mg DAILY PO 12/19/17 14:30 12/22/17 09:14 (Prinivil) 20 mg DAILY PO 12/19/17 09:00 12/23/17 08:31 (Mag-Al Plus Susp Liq) 30 ml Q6H PRN PO 12/19/17 15:45 12/19/17 15:53 (Zofran Inj) 4 mg Q6HR PRN IV PUSH 12/19/17 21:15 12/20/17 00:22 Cefazolin Sodium/ Dextrose 50 ml @ 100 mls/hr Q8H IV 12/20/17 10:00 12/23/17 01:58 (D50w (Vial) Inj) 50 ml UNSCH PRN IV PUSH 12/20/17 11:45 (Glucagon Inj) 1 mg UNSCH PRN OTHER 12/20/17 11:45 (NovoLOG SUPPLEMENTAL SCALE) 1 ACHS SLIDING SCALE SQ 12/20/17 12:00 12/22/17 11:28 A/P Assessment and Plan (1) Staphylococcus aureus septicemia ICD Code: A41.01 - Sepsis due to Methicillin susceptible Staphylococcus aureus (2) Bacteremia ICD Code: R78.81 - Bacteremia (3) UTI (urinary tract infection) ICD Code: N39.0 - Urinary tract infection, site not specified Status: Acute (4) Sepsis ICD Code: A41.9 - Sepsis, unspecified organism Status: Acute Assessment and Plan 77-year-old female admitted secondary to urinary tract infection with sepsis and bacteremia ESTHER performed and did not found pathology. . Labs reviewed. Hypokalemia present. Continue to monitor labs. Labs ordered for further monitoring. Continue to monitor for hypokalemia replace levels as needed. Sepsis Resolved Bacteremia Urinary tract infection Staph aureus on cultures of urine and blood Repeat cultures are also positive A new set of culture obtained today Continue IV vancomycin and cephalosporins along ID following ESTHER performed and did not found pathology. Hyperglycemia Follow blood sugars Slight elevation in hemoglobin A1c Borderline versus mild diabetes Insulin sliding scale Diabetic diet LFT elevation Follow LFTs Hypokalemia Monitor and replace as needed Thrombocytopenia Improving today May have been reactive Follow platelets Hypoxemia Provide oxygen as needed Currently this has improved DVT prophylaxis SCDs Caution with blood thinners given, thrombocytopenia Discharge Planning okay to transfer to [facility] by Doctor Merissa. Davis Pringle MD Dec 23, 2017 09:37
--- NOTE | 2017-12-23 09:59 | MB ---
cc: Wan Craven MD DATE OF CONSULT: 12/23/2017 REASON FOR CONSULTATION: For transesophageal echocardiogram. HISTORY OF PRESENT ILLNESS: The patient is a very pleasant 77-year-old woman who has seen my partner, Dr. Ricketts, who presented with flu-like symptoms and was found to have Staphylococcus aureus bacteremia and I have been asked to perform a transesophageal echocardiogram to exclude endocarditis. She is currently asymptomatic, denying chest pain, shortness of breath, lightheadedness, dizziness, syncope. PAST MEDICAL HISTORY: Hypothyroidism, hypertension, tachycardia. CURRENT MEDICATIONS: Zofran, amlodipine, aspirin, atenolol, Synthroid, Protonix, lisinopril. ALLERGIES: SULFA. PHYSICAL EXAMINATION: Afebrile, pulse 53, respiratory rate 18, BP 130/77, satting 97 on room air. GENERAL: A pleasant, well-appearing woman, in no distress. NECK: No JVD. LUNGS: Clear to auscultation bilaterally. CARDIOVASCULAR: Regular rate and rhythm. No murmurs appreciated. ABDOMEN: Benign. EXTREMITIES: No edema. LABORATORY DATA: White count 8.2, hematocrit 35.0, platelets 245. Sodium 141, potassium 3.6, chloride 107, bicarb 25.8, BUN 7, creatinine 0.7, glucose 117. EKG was read as sinus rhythm. Chest x-ray showed no acute disease. IMPRESSION: Bacteremia. The patient presents with persistent bacteremia. I will plan on transesophageal echocardiogram to exclude endocarditis. The patient was informed of the risks and benefits of the procedure and agrees to proceed. Further recommendations will be based on the above. Thank you again for the opportunity to participate in this patient's care. Wan Craven MD PRASANNA/TI , 08:53 AM , 09:58 AM
[2017-12-23] MEDS ORDERED: POTASSIUM CHLORIDE 20 MEQ CONTROLLED RELEASE TAB PO ONE (10:00)
[2017-12-23] MEDS ORDERED: PROPOFOL 200 MG/20 ML AMP ONE (10:14)
--- NOTE | 2017-12-23 16:15 | ECHRPT ---
Indication: SEPSIS CONCLUSIONS Normal LVEF No evidence of endocarditis BP: / HR: Rhythm: Technical Quality: Medications Complications Proc. Components FINDINGS LEFT VENTRICLE The left ventricular systolic function is normal with an estimated ejection fraction in the range of 55-60%. RIGHT VENTRICLE Normal right ventricular size and systolic function. LEFT ATRIUM The left atrial size is normal. RIGHT ATRIUM A prominent eustachian valve is observed in the right atrium (benign finding). ATRIAL APPENDAGES Normal left atrial appendage size with no evidence of thrombus formation. ATRIAL SEPTUM Normal atrial septal thickness without atrial level shunting by limited color doppler interrogation. MITRAL VALVE Mild thickening of the mitral valve leaflets. Mild mitral valve regurgitation. AORTIC VALVE Trileaflet aortic valve. Trace aortic valve regurgitation. TRICUSPID VALVE Structurally normal tricuspid valve. VESSELS The pulmonary valve is not well visualized. Wan Craven MD (Electronically Signed) Final Date:23 December 2017 16:13
[2017-12-23] MEDS ORDERED: BENZOCAINE 6 MG/MENTHOL 10 MG LOZENGE BUCCAL ONE (21:30)
[2017-12-23] MEDS: PRAVASTATIN SOD 40 MG TAB PO SCH (21:50)
[2017-12-24 00:06] VITALS: BP 140/80; PULSE 69; RESP 16; TEMP 98.9; O2SAT 98
[2017-12-24] MEDS: ceFAZolin 2 GM PREMIX 50 ML IV SCH ×2 (01:11→10:37)
[2017-12-24] MEDS: HEPARIN SODIUM - SQ 10,000 UNITS/ML VIAL SQ SCH (05:45)
[2017-12-24] MEDS: LEVOTHYROXINE SODIUM 50 MCG TAB PO SCH (05:45)
[2017-12-24 08:00] VITALS: BP 121/78; PULSE 74; RESP 15; TEMP 96.9; O2SAT 96
[2017-12-24 08:59] VITALS: BP 129/80; PULSE 94; RESP 18; TEMP 97.5; O2SAT 97
[2017-12-24] MEDS: PANTOPRAZOLE SOD 40 MG DELAYED RELEASE TAB PO SCH (09:00)
[2017-12-24] MEDS: ATENOLOL 50 MG TAB PO SCH (09:00)
[2017-12-24] MEDS: ASPIRIN 81 MG CHEW TAB CHEW SCH (09:00)
[2017-12-24] MEDS: LISINOPRIL 20 MG TAB PO SCH (09:00)
[2017-12-24] MEDS: amLODIPine BESYLATE 5 MG TAB PO SCH (09:00)
[2017-12-24] MEDS: SODIUM CHLORIDE 0.9% FLUSH 10 ML FLUSH IV FLUSH SCH (09:02)
[2017-12-24] MEDS ORDERED: BACT800T5 PO (09:19)
[2017-12-24] MEDS ORDERED: LACTTAB8 PO (09:19)
[2017-12-24] MEDS: INSULIN ASPART SUPPLEMENTAL SCALE SQ SCH ×2 (10:32→12:00)
[2017-12-24 12:00] VITALS: BP 142/66; PULSE 63; RESP 16; TEMP 96.3; O2SAT 97
--- NOTE | 2017-12-24 13:09 | HHI.DS ---
Discharge Summary Admission Date Dec 18, 2017 at 17:19 Discharge Date: Dec 24, 2017 Admitting Diagnosis Sepsis, UTI (1) Bacteremia ICD Code: R78.81 - Bacteremia Diagnosis: Principal (2) UTI (urinary tract infection) ICD Code: N39.0 - Urinary tract infection, site not specified Diagnosis: Principal Status: Acute (3) Sepsis ICD Code: A41.9 - Sepsis, unspecified organism Diagnosis: Principal Status: Acute (4) Hyperglycemia ICD Code: R73.9 - Hyperglycemia, unspecified Diagnosis: Principal (5) LFT elevation ICD Code: R79.89 - Other specified abnormal findings of blood chemistry Diagnosis: Principal (6) Hypokalemia ICD Code: E87.6 - Hypokalemia Diagnosis: Principal (7) Thrombocytopenia ICD Code: D69.6 - Thrombocytopenia, unspecified Diagnosis: Principal (8) Hypoxemia ICD Code: R09.02 - Hypoxemia Diagnosis: Principal Procedures ESTHER Brief History - From Admission Patient is a 77-year-old female with a history of hypothyroidism, hypertension and tachycardia intermittently who came to the emergency room after 4 days of dealing with fevers and chills at home. She had been taking Tylenol without any improvement. She notes no diarrhea, dysuria or chest discomfort. She has not had a cough. When she came to the hospital she was febrile at 103.1 and her heart rate was over 90. Patient takes a beta arcadio normally for intermittent tachycardia. She also was found have urinary tract infection. Blood cultures have been done and are positive. Patient is septic at this time with evidence of urinary tract infection and bacteremia. She's been admitted to the hospital for further evaluation. Her temperature has improved here in the hospital with IV antibiotics. There is no travel recently, no recent procedures or dental troubles, and no acutely ill family members although her has chronic dementia. CBC/BMP: 12/23/17 0511 12/23/17 0511 Significant Findings Laboratory Tests Test 12/22/17 09:25 12/23/17 05:11 Red Blood Count 3.97 MIL/MM3 (4.00-5.30) 3.83 MIL/MM3 (4.00-5.30) Random Glucose 182 MG/DL (74-106) 117 MG/DL (74-106) Albumin 2.5 GM/DL (3.4-5.0) 2.4 GM/DL (3.4-5.0) Aspartate Amino Transf (AST/SGOT) 60 U/L (15-37) Alanine Aminotransferase (ALT/SGPT) 60 U/L (10-53) Potassium Level 3.4 MEQ/L (3.5-5.1) Estimat Glomerular Filtration Rate 81 ML/MIN (>89) 81 ML/MIN (>89) Vancomycin Level Trough 3.9 MCG/ML (5.0-10.0) Monocytes (%) (Auto) 9.6 % (0.0-8.0) Hospital Course Mrs. Membreno is a 77-year-old female. She was admitted secondary to UTI and sepsis. Subsequently she had asked to renal in the blood with the same intensity of the urine infection. Cultures grew out staph aureus. Recurrent positive cultures became suspicious for infective endocarditis. Patient had a ESTHER which showed no evidence of bowel vegetations or endocarditis. She has been symptom-free now and her most recent cultures negative at 48 hours. Medically stable and cleared for discharge to home. She'll continue on 10 days more of Bactrim DS. Pt Condition on Discharge: Stable Discharge Disposition: Discharge Home Discharge Time: <= 30 minutes Discharge Instructions DIET: Follow Instructions for: As Tolerated, No Restrictions Activities you can perform: Regular-No Restrictions Follow up Referrals: PCP Follow-up - 2 Weeks New Medications: Lactobacillus Acidophilus (Lactobacillus Acidophilus) 1 Billion Cell Tab 1 TAB PO TIDAC for Nutritional Supplement, #30 TAB 0 Refills Sulfamethoxazole-Trimethoprim (Bactrim DS) 800-160 Mg Tab 1 TAB PO BID for Infection, #20 TAB 0 Refills Continued Medications: Amlodipine-Benazepril (Amlodipine-Benazepril) 5-20 Mg Cap 1 CAP PO DAILY for Blood Pressure Management, #30 CAP 0 Refills Aspirin (Aspirin Children's) 81 Mg Chew 81 MG CHEW DAILY, TAB 0 Refills Atenolol (Atenolol) 50 Mg Tab 50 MG PO DAILY for Blood Pressure Management, #30 TAB 0 Refills Levothyroxine (Levothyroxine) 50 Mcg Tab 50 MCG PO DAILY for Thyroid, #30 TAB 0 Refills Omeprazole Magnesium (Prilosec) 20 Mg Tab Simvastatin (Simvastatin) 20 Mg Tab 20 MG PO DAILY for Cholesterol Management, #30 TAB 0 Refills Wojciech Ayala MD Dec 24, 2017 13:09
== END 2017-12-24 13:32 | disposition home or self-care (01) | DRG 872 ==
LOC: PHED 14:58 → PHEDA 17:19 → PH3B 18:14 → HCIS 12-22 19:49 → PH3A 12-23 14:16
PROVIDERS: ADMIT Hospitalist; ATTEND Hospitalist
PROC: B24BZZ4 Ultrasonography of Heart with Aorta, Transesophageal (ICD-10-PCS; principal; 2017-12-23)
DX: A41.01 Sepsis due to Methicillin susceptible Staphylococcus aureus (principal); D69.6 Thrombocytopenia, unspecified; N30.00 Acute cystitis without hematuria; I10 Essential (primary) hypertension; R19.7 Diarrhea, unspecified; R73.9 Hyperglycemia, unspecified; R09.02 Hypoxemia; E87.6 Hypokalemia; R79.89 Other specified abnormal findings of blood chemistry; E03.9 Hypothyroidism, unspecified; K21.9 Gastro-esophageal reflux disease without esophagitis; Z66 Do not resuscitate; Z87.442 Personal history of urinary calculi
CPT/HCPCS: 71045; 76705; 80048; 80053; 80061; 80074; 80076; 80202; 81001; 82948; 83036; 83605; 84484; 85025; 86403; 87040; 87086; 87147; 87186; 87205; 87804; 93005; 93306; 93312; 93320; 93325; 96360; J0690; J0696; J1644; J1815; J2405; J3370; J7030; J7050